=== PATIENT | female | born 1935 | race Caucasian/White ===

== ENCOUNTER 2016-10-08 21:28 | Inpatient (IN) | payer MEDICARE, OTHER ==
[~2016-10-08] VITALS: Ht 154.9 cm; Wt 78.7 kg
[~2016-10-08 21:28] MED LIST: ACYCLOVIR15 GM T; AMOXIL250 MG/5 M PO; AMOXIL500 MG PO; ASPIR-LOW81 MG PO; ATENOLOL25 MG PO; ATENOLOL50 MG PO; B COMPLETE1 EACH PO; B-COMPLEX1 CAP PO; BACTRIM DS 8001 TA1 PO; BIAXIN250 MG PO; BIAXIN500 MG PO; CALCIUM600 M2; CALCIUM600 MG PO; CIPRO250 MG PO; CIPROFLOXACIN500 MG PO; DIFLUCAN100 MG PO; FISH OIL1 IU PO; HYDROCODONE BIT1 T11 PO; LIDEX 0.05% CRE15 GM T; MASON NATURAL1200 MG; MEDROL DOSEPAK4 MG PO; MOBIC7.5 MG PO; MULTI VITAMINS1 TAB PO; MULTI-DAY VITA1 EACH PO; NEXIUM40 MG PO; PERVISION PO; PRESERVISION A1 EACH PO; PRESERVISION1 SGL PO; PROAIR HFA0.09 MG/AC INH; PROTONIX40 MG PO; PYRIDIUM100 MG PO; PYRIDIUM200 MG PO; ROBITUSSIN5 ML PO; SIMVASTATIN40 MG PO; TRAMADOL HCL50 MG PO; TYLENOL W/ CODEI5 ML PO; VISTARIL25 M2 PO; ZANTAC 300300 MG PO; ZANTAC150 MG PO; ZITHROMAX Z PA250 MG PO; ZITHROMAX250 MG PO; ZOCOR40 MG PO; ZOFRAN4 MG PO
[2016-10-08 21:40] VITALS: BP 148/93
[2016-10-08] MEDS ORDERED: NORTRIPTYLINE25 MG PO (21:44)
[2016-10-08] MEDS ORDERED: HYDROCODONE/ACE1 T12 PO (21:46)
[2016-10-08 22:23] LABS: HEMATOCRIT 43.5 % (37.0-47.0); HEMOGLOBIN 14.6 g/dl (12.0-16.0); MEAN CELL VOLUME 91.6 fl (81.0-99.0); MEAN CORPUSCULAR HGB 30.7 pg (27.0-31.0); MEAN CORPUSCULAR HGB CONC 33.6 g/dl (33.0-37.0); MEAN PLATELET VOLUME 9.9 fl (9.6-12.3); PLATELET COUNT AUTOMATED 287 10*3/uL (130-400); RED BLOOD COUNT 4.75 10*6/uL (4.10-5.10); RED CELL DISTRI WIDTH 12.6 % (0-14.5); WHITE BLOOD COUNT 10.5 10*3/uL (4.8-10.8)
[2016-10-08 22:40] LABS: ALBUMIN 3.7 gm/dl (3.1-4.5); ALKALINE PHOSPHATASE 82 U/L (45-117); BILIRUBIN, TOTAL 0.6 mg/dl (0.2-1.0); BUN 26 mg/dl (7-24); CARBON DIOXIDE 23 mmol/L (21-32); CHLORIDE 106 mmol/L (98-107); EST GLOM FILT AFRICAN AMERICAN > 60 ml/min; GLUCOSE 121 mg/dL (65-99); POTASSIUM 3.9 mmol/L (3.5-5.1); SGOT/AST 19 IU/L (3-35); SGPT/ALT 25 U/L (12-78); SODIUM 141 mmol/L (136-145); TOTAL PROTEIN 7.4 gm/dL (6.4-8.2)
[2016-10-08 22:43] LABS: TROPONIN I < 0.015 ng/ml (<0.045)
[2016-10-08 22:44] LABS: ATYPICAL LYMPHS 1 % (0-0); LYMPHOCYTE # 0.1 10*3/uL (1.3-4.4); NEUTROPHIL # 10.4 10*3/uL (2.3-7.9); NEUTROPHILS 99 % (47-73); PLATELET SUFFICIENCY NORMAL (NORMAL); TOTAL CELLS COUNTED 100 #CELLS
[2016-10-08 23:10] VITALS: BP 124/76
[2016-10-08 23:26] LABS: BILIRUBIN NEGATIVE (NEGATIVE); BLOOD NEGATIVE (NEGATIVE); CLARITY CLEAR (CLEAR); COLOR YELLOW (YELLOW); GLUCOSE NEGATIVE (NEGATIVE); KETONE 1+ (NEGATIVE); LEUKO ESTERASE NEGATIVE (NEGATIVE); NITRITE NEGATIVE (NEGATIVE); PH 5.5 (5.0-9.0); PROTEIN NEGATIVE (NEGATIVE); SPECIFIC GRAVITY 1.025 (1.005-1.030); UROBILINOGEN 0.2 E.U./dl (0.2-1.0)
[2016-10-08 23:31] LABS: URINE REFLEX COMMENT NO (NO); WBC 0-2 wbc/hpf (0-5)
[2016-10-09] VITALS (7 sets, daily range): BP systolic 127–152; BP diastolic 46–84
[2016-10-09 06:31] LABS: HEMATOCRIT 40.8 % (37.0-47.0); HEMOGLOBIN 13.2 g/dl (12.0-16.0); MEAN CELL VOLUME 93.8 fl (81.0-99.0); MEAN CORPUSCULAR HGB 30.3 pg (27.0-31.0); MEAN CORPUSCULAR HGB CONC 32.4 g/dl (33.0-37.0); MEAN PLATELET VOLUME 10.2 fl (9.6-12.3); PLATELET COUNT AUTOMATED 271 10*3/uL (130-400); RED BLOOD COUNT 4.35 10*6/uL (4.10-5.10); RED CELL DISTRI WIDTH 12.7 % (0-14.5); WHITE BLOOD COUNT 6.8 10*3/uL (4.8-10.8)
[2016-10-09 06:51] LABS: BUN 18 mg/dl (7-24); CARBON DIOXIDE 27 mmol/L (21-32); CHLORIDE 106 mmol/L (98-107); EST GLOM FILT AFRICAN AMERICAN > 60 ml/min; GLUCOSE 93 mg/dL (65-99); POTASSIUM 3.5 mmol/L (3.5-5.1); SODIUM 140 mmol/L (136-145)
[2016-10-09 06:52] LABS: CKMB 1.6 ng/ml (0.5-3.6); CPK 76 U/L (26-192)
[2016-10-09 06:53] LABS: LYMPHOCYTE # 0.2 10*3/uL (1.3-4.4); MONOCYTE # 0.4 10*3/uL (0.1-1.0); NEUTROPHIL # 6.2 10*3/uL (2.3-7.9); NEUTROPHILS 91 % (47-73); PLATELET SUFFICIENCY NORMAL (NORMAL); TOTAL CELLS COUNTED 100 #CELLS
[2016-10-09 06:59] LABS: TROPONIN I < 0.015 ng/ml (<0.045)
[2016-10-09 12:31] LABS: CKMB 1.7 ng/ml (0.5-3.6); CPK 70 U/L (26-192)
[2016-10-09 12:32] LABS: TROPONIN I < 0.015 ng/ml (<0.045)
[2016-10-09 18:13] LABS: CKMB 1.9 ng/ml (0.5-3.6); CPK 80 U/L (26-192)
[2016-10-09 18:16] LABS: TROPONIN I < 0.015 ng/ml (<0.045)
[2016-10-10] VITALS: BP 159/82
[2016-10-10 06:05] LABS: BASO % 1.2 % (0.0-1.0); EOS # 0.1 10*3/uL (0.0-0.4); HEMOGLOBIN 11.6 g/dl (12.0-16.0); LYMPH # 0.6 10*3/uL (1.3-4.4); LYMPH % 24.6 % (27.0-41.0); MEAN CELL VOLUME 94.7 fl (81.0-99.0); MEAN CORPUSCULAR HGB 30.5 pg (27.0-31.0); MEAN CORPUSCULAR HGB CONC 32.2 g/dl (33.0-37.0); MEAN PLATELET VOLUME 9.5 fl (9.6-12.3); MONO # 0.5 10*3/uL (0.1-1.0); MONO % 19.4 % (3.0-9.0); NEUT # 1.3 10*3/uL (2.3-7.9); NEUT % 50.8 % (47.0-73.0); PLATELET COUNT AUTOMATED 235 10*3/uL (130-400); WHITE BLOOD COUNT 2.5 10*3/uL (4.8-10.8)
[2016-10-10 06:44] LABS: CARBON DIOXIDE 26 mmol/L (21-32); CHLORIDE 111 mmol/L (98-107); EST GLOM FILT AFRICAN AMERICAN > 60 ml/min; GLUCOSE 84 mg/dL (65-99); POTASSIUM 3.3 mmol/L (3.5-5.1); SODIUM 143 mmol/L (136-145)
[2016-10-10 07:01] LABS: BUN 6 mg/dl (7-24)
[2016-10-10 08:00] VITALS: BP 152/69
[2016-10-10 12:00] VITALS: BP 156/66
[2016-10-10 16:00] VITALS: BP 150/70
[2016-10-10 20:00] VITALS: BP 153/88
[2016-10-11] VITALS: BP 149/60
[2016-10-11 06:08] LABS: HEMATOCRIT 36.6 % (37.0-47.0); MEAN CELL VOLUME 92.4 fl (81.0-99.0); MEAN CORPUSCULAR HGB 30.3 pg (27.0-31.0); MEAN CORPUSCULAR HGB CONC 32.8 g/dl (33.0-37.0); MEAN PLATELET VOLUME 10.1 fl (9.6-12.3); PLATELET COUNT AUTOMATED 249 10*3/uL (130-400); RED BLOOD COUNT 3.96 10*6/uL (4.10-5.10); RED CELL DISTRI WIDTH 12.8 % (0-14.5); WHITE BLOOD COUNT 3.9 10*3/uL (4.8-10.8)
[2016-10-11 06:38] LABS: ATYPICAL LYMPHS 1 % (0-0); BASOPHILS 1 % (0-1); EOSINOPHIL # 0.2 10*3/uL (0-0.4); EOSINOPHILS 4 % (1-4); LYMPHOCYTE # 1.4 10*3/uL (1.3-4.4); MONOCYTE # 0.7 10*3/uL (0.1-1.0); NEUTROPHIL # 1.6 10*3/uL (2.3-7.9); NEUTROPHILS 42 % (47-73); PLATELET SUFFICIENCY NORMAL (NORMAL); TOTAL CELLS COUNTED 100 #CELLS
[2016-10-11 08:00] VITALS: BP 138/70
[2016-10-11 12:00] VITALS: BP 127/60
== END 2016-10-11 14:10 | disposition home or self-care (01) | DRG 392 ==
LOC: ED 21:28 → 5E 10-09 → EDHOLD 10-09 → 5E 10-09 00:26
PROVIDERS: Hospitalist; Internal Medicine; Student in an Organized Health Care Education/Training Program
DX: K52.9 Noninfective gastroenteritis and colitis, unspecified (principal); E86.0 Dehydration; B02.29 Other postherpetic nervous system involvement; Z95.1 Presence of aortocoronary bypass graft; R00.0 Tachycardia, unspecified; I25.10 Atherosclerotic heart disease of native coronary artery without angina pectoris; M19.90 Unspecified osteoarthritis, unspecified site; E78.5 Hyperlipidemia, unspecified; I10 Essential (primary) hypertension; K21.9 Gastro-esophageal reflux disease without esophagitis; H35.30 Unspecified macular degeneration; E66.01 Morbid (severe) obesity due to excess calories; R91.1 Solitary pulmonary nodule; D72.819 Decreased white blood cell count, unspecified; E87.6 Hypokalemia; Z90.49 Acquired absence of other specified parts of digestive tract; Z90.710 Acquired absence of both cervix and uterus; Z80.42 Family history of malignant neoplasm of prostate; Z83.3 Family history of diabetes mellitus; Z88.8 Allergy status to other drugs, medicaments and biological substances; Z79.82 Long term (current) use of aspirin; Z79.899 Other long term (current) drug therapy; Z68.32 Body mass index [BMI] 32.0-32.9, adult

== ENCOUNTER 2017-03-18 03:53 | Emergency (ER) | payer MEDICARE, OTHER ==
[~2017-03-18] VITALS: Ht 152.4 cm; Wt 75.3 kg
[~2017-03-18 03:53] MED LIST changes: +HYDROCODONE/ACE1 T12 PO; +NORTRIPTYLINE25 MG PO
[2017-03-18 04:00] VITALS: BP 153/78
[2017-03-18] MEDS ORDERED: MEDROL DOSEPAK4 MG PO (04:12)
[2017-03-18] MEDS ORDERED: BENADRYL ALLERG25 M5 PO (04:12)
== END 2017-03-18 04:18 | disposition home or self-care (01) ==
LOC: ED 03:53
DX: R21 Rash and other nonspecific skin eruption (principal); I25.10 Atherosclerotic heart disease of native coronary artery without angina pectoris; I10 Essential (primary) hypertension; K21.9 Gastro-esophageal reflux disease without esophagitis; E78.5 Hyperlipidemia, unspecified; E66.9 Obesity, unspecified; M19.90 Unspecified osteoarthritis, unspecified site; Z90.49 Acquired absence of other specified parts of digestive tract; Z98.890 Other specified postprocedural states; Z90.710 Acquired absence of both cervix and uterus; Z95.1 Presence of aortocoronary bypass graft; Z88.8 Allergy status to other drugs, medicaments and biological substances; Z79.82 Long term (current) use of aspirin; Z79.899 Other long term (current) drug therapy

== ENCOUNTER → 2017-08-22 | Outpatient (CLI) | payer MEDICARE, OTHER ==
[~2017-08-22] MED LIST changes: +BENADRYL ALLERG25 M5 PO
== END | disposition home or self-care (01) ==
LOC: MAMMO 08-09 14:20
DX: Z12.31 Encounter for screening mammogram for malignant neoplasm of breast (principal)

== ENCOUNTER 2018-08-08 14:58 | Inpatient (IN) | payer MEDICARE, OTHER ==
[~2018-08-08] VITALS: Ht 154.9 cm; Wt 72.3 kg
--- NOTE | ~2018-08-08 | EKG ---
[place], [place] ELECTROCARDIOGRAM REPORT NAME: LONG ARCE UNIT #: [id number] ROOM: 407 DOCTOR: LOU DRAFT REPORT BIRTHDATE: [birth year] [facility] Test Date: 2018-08-08 Test Time: 15:42:12 Pat Name: LONG ARCE Department: Room: 407 Gender: F Folded Cloth Taper: Cora Arvizu : 1935 Requested By: ANJU SANDHU Order Number: [id number] Reading MD: Sebastián Flowers MD Measurements Intervals [place] Rate: 63 P: 9 RI: 171 QRS: 1 QRSD: 89 T: 23 QT: 406 QTc: 416 Interpretive Statements Sinus rhythm Left ventricular hypertrophy Electronically Signed On 08-09-2018 4:00:11 PST by Sebastián Flowers MD CM:EKGRPT:ELECTROCARDIOGRAM REPORT [id number] ANJU MCGUIRE DRAFT REPORT ANJU SANDHU DO
--- NOTE | ~2018-08-08 | PR ---
[place], [place] PROGRESS NOTE NAME: LONG ARCE UNIT #: [id number] ROOM: 407 DOCTOR: MIRIAN ARREOLA MD BIRTHDATE: [birth year] DOS: 08/11/2018 CARDIOLOGY FOLLOWUP VISIT NOTE REASON FOR VISIT: Atrial flutter and coronary artery disease and the patient was feeling better. Denies any chest pain or shortness of breath. No palpitation or dizziness. She wanted to go home. REVIEW OF SYSTEMS: Review of the 8 systems negative except as mentioned above. PHYSICAL EXAMINATION: VITAL SIGNS: Blood pressure 138/66, pulse 60, respiratory rate 20. RHYTHM STRIPS: The patient in sinus rhythm. GENERAL: Alert, comfortable, in no acute distress. HEAD AND NECK: Supple, no distended neck veins, no carotid bruit. CHEST: Symmetrical, nontender. LUNGS: Clear to auscultation bilaterally. HEART: Regular rhythm, no S3, no palpable thrills. ABDOMEN: Benign, nontender. Bowel sounds normal. EXTREMITIES: Showed no edema. Distal pulses palpable. SKIN: Warm and dry. No cyanosis, no clubbing. RECTAL: Deferred. GENITOURINARY: Deferred. MEDICATIONS AND ALLERGIES: Reviewed and labs reviewed. IMPRESSION: 1. Paroxysmal atrial flutter, the patient in sinus rhythm. 2. Coronary sinus bradycardia, currently stable. 3. Coronary artery disease, status post single-vessel bypass surgery. 4. Hypertension. 5. Mild abnormal stress test with lateral wall ____ the patient was chest pain free. 6. The patient is clinically stable with ____ no shortness of breath. Blood pressure and heart rate is stable. She wanted to go home. She can be discharged to home today on current medications. Continue Eliquis for anticoagulation. 7. Follow up with [facility] in 2-3 weeks. 8. No family at bedside at the time of my examination. [place], [place] PROGRESS NOTE NAME: LONG ARCE UNIT #: [id number] ROOM: 407 DOCTOR: MIRIAN ARREOLA MD BIRTHDATE: [birth year] MIRIAN ARREOLA MD CM:SHERIF [id number] MIRIAN ARREOLA MD 08/12/18 1657 interface
--- NOTE | ~2018-08-08 | EKG ---
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
--- NOTE | ~2018-08-08 | CON ---
[place], [place] REPORT OF CONSULTATION [facility]: [facility]CE [id number] UNIT #: [id number] ROOM: 407 DOCTOR: DAVID PATEL MD BIRTHDATE: [birth year] DOS: 08/09/2018 CARDIOLOGY CONSULTATION NOTE REASON FOR CONSULTATION: Evaluation of dyspnea and atherosclerotic heart disease. HISTORY OF PRESENT ILLNESS: The patient is an 82-year-old woman who has a remote history of coronary artery disease. She did have a single vessel bypass in 1991. She states that at that time her only symptom was dyspnea. She has not had any chest pain since then. Her most recent stress test 02/19/2015 showed normal left ventricular size and systolic function with normal myocardial perfusion and was a low-risk study. She states that she was doing reasonably well until recently when she has been feeling much more fatigued than usual. She finds that she has to stop and rest frequently. Any activity makes her tired. She denied any chest pain. While she was at the [facility] at [employer], she got very fatigued and began shaking. The therapist insisted that she come to the Emergency Room for evaluation. Currently, she just feels tired. She denies any chest pain, diaphoresis, palpitations, lightheadedness or syncope. Since she has been in the hospital, serial troponin levels have been negative. Electrolytes have been normal. Sugar was 86. PAST MEDICAL HISTORY: Includes, 1. Coronary artery disease with single vessel bypass 1991. Records not available. 2. Hypertension. 3. Hyperlipidemia. 4. Gastroesophageal reflux disease. 5. Rheumatoid arthritis. 6. Hospitalization 01/2015 with vasomotor symptoms, but no evidence for myocardial infarction. 7. Pharmacologic myocardial perfusion study 02/19/2015, normal left ventricular size, wall motion and systolic function with normal myocardial perfusion, exam was felt to be low risk. MEDICATIONS PRIOR TO ADMISSION: Aspirin 81 mg daily, atenolol 50 mg daily, Meloxicam 7.5 mg 3 times a week, multivitamin once a day, ranitidine 150 mg b.i.d., simvastatin 40 mg at bedtime, PreserVision 1 tablet daily and vitamin B complex daily. ALLERGIES: She lists an allergy to GABAPENTIN. FAMILY HISTORY: Her father of prostate cancer at age 80. Her mother at age 60 from rupture of the bowel. REVIEW OF SYSTEMS: The patient denies diplopia or loss of vision. She denies focal weakness. She denies lightheadedness or syncope, but she does feel weak. She denies nausea or vomiting. She denies fevers, chills, sweats or recent weight change. She denies orthopnea or PND. She denies palpitations, lightheadedness or syncope. She denies any chest pain. She denies hemoptysis [place], [place] REPORT OF CONSULTATION NAME: LONG ARCE UNIT #: [id number] ROOM: 407 DOCTOR: DAVID PATEL MD BIRTHDATE: [birth year] or hematemesis. She denies change in bowel or bladder habits and denies blood in her stools or urine. She denies any peripheral edema or skin rashes. She denies heat or cold intolerance and denies polyuria or polydipsia. Remainder of the review of systems is negative except as noted above. SOCIAL HISTORY: The patient does not consume alcohol or illegal drugs and does not smoke. PHYSICAL EXAMINATION: GENERAL: The patient is a well-nourished elderly white female who looks younger than her stated age. VITAL SIGNS: Pulse is 69 and regular, blood pressure is 146/75. She is afebrile. She weighs 72.3 kg and has a body mass index of 30.2. HEENT: Normocephalic and atraumatic. Extraocular muscles are intact. Sclerae are clear. Pupils equal, round and react to light. The oral mucosa is moist. Tongue is midline. NECK: Supple. She has no jugular distention. Carotids are full. There are no bruits. She has no neck or supraclavicular masses and no thyromegaly. LUNGS: Respirations are unlabored. Her chest is clear to auscultation and percussion. She has no presacral edema and no chest wall tenderness. CARDIOVASCULAR: Her heart has a regular rhythm with an S4 gallop. I heard no S3 or murmur. The PMI was not displaced. She had no precordial heave, lift or thrill. ABDOMEN: Soft and normally active without masses, organomegaly or bruits. EXTREMITIES: Showed no edema. Pedal pulses are palpable in the feet. LABORATORY DATA: I did review her echocardiogram, which showed normal left ventricular size with mild concentric left ventricular hypertrophy. Regional wall motion and systolic function were normal with stage 1 diastolic relaxation abnormality, which is normal for her age. The left atrium is mildly dilated. The aortic valve leaflets were sclerotic, but opened well. There was no significant abnormality of valve function noted. Hemoglobin is 13.2, white count 6000, platelet count 237,000. Sodium 142, potassium 4.0, chloride 110, CO2 of 26, BUN 21, creatinine 0.59. Serial troponin levels are normal. IMPRESSIONS: 1. Unexplained dyspnea. The patient shows no signs of heart failure, anemia or acute coronary ischemia; however, she tells me that she was dyspneic prior to her bypass and that was corrected by bypass surgery. 2. History of atherosclerotic heart disease, status post single vessel bypass 1991. Anatomy not currently known. 3. Essential hypertension. 4. Hyperlipidemia. 5. Pharmacologic myocardial perfusion study 02/19/2015, was a normal exam. PLAN: Thus far, there is no objective evidence to suggest heart failure as a cause for her symptoms. She does not show any signs of acute coronary syndrome. Certainly, ischemia could make her fatigued and dyspneic. We will therefore [place], [place] REPORT OF CONSULTATION NAME: LONG ARCE UNIT #: [id number] ROOM: 407 DOCTOR: DAVID PATEL MD BIRTHDATE: [birth year] continue with her workup and do a pharmacologic stress test within the next 24 hours. Further recommendations depend upon the results of the stress test. We thank Dr. Reza for asking our advice regarding her care. ADDENDUM: The patient had a pharmacologic stress test today, which showed a small area of lateral ischemia. The amount of myocardium at risk is very limited and the overall left ventricular strength is good, so the study is fairly low risk. While on the monitor later in the afternoon, she was noted to have rapid heart rhythm. Review of strips shows that her rhythm is consistent with atrial flutter. This probably accounts for her episodic symptoms. For now, we will start her on metoprolol for rate control. She has a [id number] score of 5 and therefore, should be on a direct oral anticoagulant as well. We will start Eliquis. Depending on her response to medications, we may need to consider antiarrhythmic therapy or pacer therapy in the future. I thank the hospitalist physicians for asking our advice regarding her care. DAVID PATEL MD CM:CONSTR:REPORT OF CONSULTATION 32 08/10/18 1918 interface
--- NOTE | ~2018-08-08 | EKG ---
[place], [place] ELECTROCARDIOGRAM REPORT NAME: LONG ARCE UNIT #: [id number] ROOM: 407 DOCTOR: LOU DRAFT REPORT BIRTHDATE: [birth year] [facility] [place] Test Date: 2018-08-09 Test Time: 01:18:30 Pat Name: LONG ARCE Department: Room: 407 2 Gender: F Delimer: 50 : 1935 Requested By: LAWANDA AZEVEDO Order Number: [id number] Reading MD: Sebastián Flowers MD Measurements Intervals [place] Rate: 55 P: 9 CA: 175 QRS: 13 QRSD: 85 T: 25 QT: 412 QTc: 394 Interpretive Statements Sinus rhythm Probable left atrial enlargement Electronically Signed On 08-09-2018 18:11:22 PST by Sebastián Flowers MD CM:EKGRPT:ELECTROCARDIOGRAM REPORT 0118 181 LAWANDA MCGUIRE DRAFT REPORT LAWANDA AZEVEDO DO
--- NOTE | ~2018-08-08 | PR ---
[place], [place] PROGRESS NOTE [id number] UN[facility] #: [id number] ROOM: 407 DOCTOR: DAVID PATEL MD BIRTHDATE: [birth year] DOS: 08/10/2018 CARDIOLOGY PROGRESS NOTE SUBJECTIVE: The patient was seen in the Cardiology Department today, 08/10/2018 prior to her stress test. She had a good night. Denies any further trouble with breathing. She has not had any chest pain at all. Cardiac biomarkers have all been normal. PHYSICAL EXAMINATION: VITAL SIGNS: Today, her pulse is 63 and regular, blood pressure is 130/66. She is afebrile. NECK: Supple. She has no jugular distention. Carotids are full. There are no bruits. She has no neck or supraclavicular masses, no thyromegaly. LUNGS: Respirations are unlabored. Chest is clear to auscultation and percussion. HEART: Has a regular rhythm with an S4 gallop. ABDOMEN: Benign. EXTREMITIES: Showed no edema. The etiology of her symptoms is not yet clear. We will therefore proceed with her pharmacologic stress test today to determine if she has recurrent coronary ischemia as a cause for her dyspnea. IMPRESSIONS: 1. Coronary artery disease with single vessel bypass 1992. 2. Essential hypertension. 3. Hyperlipidemia. 4. Gastroesophageal reflux disease. PLAN: We will proceed with her pharmacologic stress test with further recommendations to follow that. DAVID PATEL MD CM:PNTRANS [id number] DAVID PATEL MD 08/20/18 0907 interface
--- NOTE | ~2018-08-08 | EKG ---
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
[2018-08-08 14:59] VITALS: BP 181/56
[2018-08-08 16:14] LABS: BASO # 0.1 10*3/uL (0.0-0.1); BASO % 1.2 % (0.0-1.0); EOS # 0.3 10*3/uL (0.0-0.4); HEMOGLOBIN 14.4 g/dl (12.0-16.0); LYMPH # 1.2 10*3/uL (1.3-4.4); LYMPH % 18.8 % (27.0-41.0); MEAN CELL VOLUME 93.2 fl (81.0-99.0); MEAN CORPUSCULAR HGB 30.5 pg (27.0-31.0); MEAN CORPUSCULAR HGB CONC 32.7 g/dl (33.0-37.0); MEAN PLATELET VOLUME 10.7 fl (9.6-12.3); MONO # 0.9 10*3/uL (0.1-1.0); MONO % 13.3 % (3.0-9.0); NEUT # 4.1 10*3/uL (2.3-7.9); NEUT % 62.5 % (47.0-73.0); PLATELET COUNT AUTOMATED 261 10*3/uL (130-400); RED BLOOD COUNT 4.72 10*6/uL (4.10-5.10); RED CELL DISTRI WIDTH 13.4 % (0-14.5); WHITE BLOOD COUNT 6.5 10*3/uL (4.8-10.8)
[2018-08-08 16:26] LABS: ACT PARTIAL THROMBO TIME 22.7 SECONDS (20.8-31.5)
[2018-08-08 16:32] LABS: ALBUMIN 3.8 gm/dl (3.1-4.5); ALKALINE PHOSPHATASE 125 U/L (45-117); BUN 23 mg/dl (7-24); CHLORIDE 109 mmol/L (98-107); CREATININE 0.57 mg/dL (0.55-1.02); LIPASE 124 U/L (73-393); POTASSIUM 4.1 mmol/L (3.5-5.1); SGOT/AST 30 IU/L (3-35); SGPT/ALT 32 U/L (12-78); SODIUM 140 mmol/L (136-145); TOTAL PROTEIN 7.7 gm/dL (6.4-8.2)
[2018-08-08 16:34] LABS: TROPONIN I < 0.015 ng/ml (<0.045)
[2018-08-08 16:38] LABS: BILIRUBIN NEGATIVE (NEGATIVE); BLOOD NEGATIVE (NEGATIVE); CLARITY CLEAR (CLEAR); COLOR YELLOW (YELLOW); GLUCOSE NEGATIVE (NEGATIVE); KETONE NEGATIVE (NEGATIVE); LEUKO ESTERASE NEGATIVE (NEGATIVE); NITRITE NEGATIVE (NEGATIVE); PH 5.5 (5.0-9.0); UROBILINOGEN 0.2 E.U./dl (0.2-1.0)
[2018-08-08] MEDS ORDERED: PRESERVISION A1 EAC1 PO (17:59)
[2018-08-08 18:25] VITALS: BP 118/91
--- NOTE | 2018-08-08 18:25 | NUR ---
A 82, admitted to 4E, under the services of JOCELYN White DO with a diagnosis of DYSPNEA W EXERTION. Chief complaint is SOB W EXERTION. Patient arrived via bed from ER. Monitor applied. Initial assessment completed. Vital signs taken and recorded. JOCELYN WHITE DO notified of admission to the unit. Orders received. See assessment for past medical history, medications and allergies. Patient and/or family oriented to unit. [facility] visitation policy reviewed. Clothing/patient valuable form completed. VU PATE
[2018-08-08 18:45] VITALS: BP 148/70
--- NOTE | 2018-08-08 18:45 | NUR ---
MEDS RECONCILED AT [facility] DA[facility].
[2018-08-08 18:51] VITALS: BP 118/91
--- NOTE | 2018-08-08 18:52 | NUR ---
ADMISSION COMPLETED. PT HANDED OF F TO DEENA LANTIGUA.
[2018-08-08 20:00] VITALS: BP 161/77
--- NOTE | 2018-08-08 22:30 | NUR ---
CALLED DR ALLEN REGARDING PT C/O GERD. ORDER TO START ZANTAC FROM HOME MED LIST
[2018-08-09] VITALS: BP 122/62
[2018-08-09 07:15] LABS: BASO # 0.1 10*3/uL (0.0-0.1); BASO % 1.3 % (0.0-1.0); EOS # 0.3 10*3/uL (0.0-0.4); EOS % 4.9 % (1.0-4.0); HEMATOCRIT 40.5 % (37.0-47.0); HEMOGLOBIN 13.2 g/dl (12.0-16.0); LYMPH # 1.3 10*3/uL (1.3-4.4); LYMPH % 21.3 % (27.0-41.0); MEAN CELL VOLUME 92.9 fl (81.0-99.0); MEAN CORPUSCULAR HGB 30.3 pg (27.0-31.0); MEAN CORPUSCULAR HGB CONC 32.6 g/dl (33.0-37.0); MEAN PLATELET VOLUME 10.8 fl (9.6-12.3); MONO # 0.8 10*3/uL (0.1-1.0); MONO % 13.6 % (3.0-9.0); NEUT # 3.5 10*3/uL (2.3-7.9); NEUT % 58.6 % (47.0-73.0); PLATELET COUNT AUTOMATED 237 10*3/uL (130-400); RED BLOOD COUNT 4.36 10*6/uL (4.10-5.10); RED CELL DISTRI WIDTH 13.5 % (0-14.5)
[2018-08-09 07:33] LABS: BUN 21 mg/dl (7-24); CHLORIDE 110 mmol/L (98-107); CHOLESTEROL 99 mg/dL (<200); PHOSPHOROUS 3.9 mg/dL (2.5-4.9); SODIUM 142 mmol/L (136-145)
[2018-08-09 07:41] LABS: CREATININE 0.59 mg/dL (0.55-1.02); FREE T4 1.09 ng/dl (0.76-1.46); HDL CHOLESTEROL 40 mg/dl (40-60); LDL CHOLESTEROL 42 mg/dL (9-159); TRIGLYCERIDES 85 mg/dl (<150); VLDL CHOLESTEROL 17 mg/dL (6-40)
[2018-08-09 08:48] LABS: VITAMIN D, 25-HYDROXY 29.3 ng/mL (30-100)
--- NOTE | 2018-08-09 09:00 | NUR ---
Manager Agricultural in to talk to patient. Patient states lives at home with daughter. There are few steps in the home. Physician: corey Pharmacy: [facility] Home health services: none Patient's level of ADLs: MINIMAL ASSIST Patient has working utilities: all working DME: cane Follow-up physician's appointment after d/c: will be made by hospitalist nurse director upon discharge Does patient want to access PORTAL?: no Discharge plan discussed with patient, patient lives at home with daughter, she states she is independent in adls and ambulation, patient states she will be going home when able. discussed with her VNA services at home and patient stated she didn't think she would need anything, then stated she would think about having their services. case management will follow. BAKARI BELL
--- NOTE | 2018-08-09 10:47 | NUR ---
CALLED THE [facility] REGARDING NEW PT CONSULT FOR DR PATEL. 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
--- NOTE | 2018-08-09 10:48 | NUR ---
SPOKE TO DR SANDERSON AND REQUESTED PTS HOME MEDIACTIONS BE CONTINUED. SHE SAID SHE WILL TAKE CARE OF IT
[2018-08-09 12:00] VITALS: BP 153/65
--- NOTE | 2018-08-09 15:09 | NUR ---
Occupational Therapy evaluation completed on 4 with full eval to follow. Precuations include cane use, dyspnea upon exertion. Patient is low complexity level 70146 via chart review, testing and evaluation. Recommend OT per pOC and return home alone upon d/c. Thank you for this referral Briseyda Sheltno OTR/L
--- NOTE | 2018-08-09 15:51 | NUR ---
PHYSICAL THERAPY PAtient evaluated on 4, full evaluation to follow. Continue with PT as per plan of care with fall, cardiac and acute debility precautions. Home for d/c planning with out patient PT at [facility] PT as prior. Patient is moderate complexity via chart review, tests and evaluation; [id number]. Thank you for this referral. Radha Villagomez,PT
[2018-08-09 16:00] VITALS: BP 146/75
[2018-08-09 20:00] VITALS: BP 168/77
--- NOTE | 2018-08-09 20:46 | NUR ---
PT MEDICATED WITH PO TYLENOL PER PRN ORDER FOR C/O HEADACHE. WILL MONITOR EFFECTIVENESS. CALL LIGHT LEFT IN REACH.
[2018-08-10] VITALS: BP 118/62
[2018-08-10 06:11] LABS: BASO # 0.1 10*3/uL (0.0-0.1); BASO % 1.8 % (0.0-1.0); EOS # 0.3 10*3/uL (0.0-0.4); HEMATOCRIT 41.5 % (37.0-47.0); HEMOGLOBIN 13.4 g/dl (12.0-16.0); LYMPH # 1.2 10*3/uL (1.3-4.4); LYMPH % 25.1 % (27.0-41.0); MEAN CELL VOLUME 93.5 fl (81.0-99.0); MEAN CORPUSCULAR HGB 30.2 pg (27.0-31.0); MEAN CORPUSCULAR HGB CONC 32.3 g/dl (33.0-37.0); MEAN PLATELET VOLUME 10.5 fl (9.6-12.3); MONO # 0.7 10*3/uL (0.1-1.0); NEUT # 2.5 10*3/uL (2.3-7.9); NEUT % 51.9 % (47.0-73.0); PLATELET COUNT AUTOMATED 256 10*3/uL (130-400); RED BLOOD COUNT 4.44 10*6/uL (4.10-5.10); RED CELL DISTRI WIDTH 13.5 % (0-14.5); WHITE BLOOD COUNT 4.9 10*3/uL (4.8-10.8)
[2018-08-10 06:25] LABS: BUN 20 mg/dl (7-24); CHLORIDE 108 mmol/L (98-107); POTASSIUM 4.3 mmol/L (3.5-5.1); SODIUM 142 mmol/L (136-145)
[2018-08-10 08:03] VITALS: BP 130/66
--- NOTE | 2018-08-10 08:16 | NUR ---
PATIENT PLEASANT AND COOPERATIVE THIS MORNING. BED CHANGED AND PATIENT BATHED TODAY. NO COMPLAINTS AT THIS TIME. MARINO IVORY [facility]
--- NOTE | 2018-08-10 09:00 | NUR ---
case management visits with patient, patient states she will be going home when able. patient declines any home services at this time
--- NOTE | 2018-08-10 09:21 | NUR ---
PHYSICAL THERAPY Patient presented to therapy in sitting position with a relative visiting in room and no complaints. Patient agrees to therapy session. Patient was identified by name and . Patient performed STS transfer from low chair with SBA. Patient ambulated with straight cane for 150' x 1 with CGA X 1 to Close Supervision with verbal cues for upright posture. Patient rested in chair and then STS transfer again with SBA. Patient ambulated 80' x 1 with CLOSE SUPERVISION to [facility] ,where she ascended and descended x 10 steps with Close Supervision. Patient then ambulated back to room 80' x 1 with CLOSE SUPERVISION with straight cane. Patient was left in sitting in chair with vistor present and call light within reach. Patient is ambulating to and from restroom throughout the day by herself. Patient was 1:1 with this PROFESSIONAL APPLICATION DESIGNER for 23 minutes total. LEILA MENDEZ PROFESSIONAL APPLICATION DESIGNER
--- NOTE | 2018-08-10 09:30 | NUR ---
PATIENT NPO, MEDS HELD UNTIL PROCEDURE IS COMPLETED. MARINO IVORY [facility]
--- NOTE | 2018-08-10 10:15 | NUR ---
PATIENT TAKEN OFF FLOOR FOR STRESS TEST. MARINO IVORY SPNR[facility]
--- NOTE | 2018-08-10 11:45 | NUR ---
INFORMED SIGNED CONSENT OBTAINED FOR LEXISCAN STRESS TEST WITH DR PATEL. RESTING EKG SINUS BRADYCARDIA HR 58 WITH PVC'S. PULSE OX 97% LUNGS CLEAR. PT COMPLETED ONE MINUTE OF A LEXISCAN PROTOCOL WITH PT RECEIVING LEXISCAN 0.4MG IV OVER 10 SECONDS. FREQUENT PVC'S NOTED WITH TRIGEMNY. NO ST CHANGES SEEN. PT C/O HEADACHE WITH INJECTION. LAST RECOVERY HR OF 111 BP 110/64. PT IN STABLE CONDITION, AWAITING NUCLEAR IMAGES.
--- NOTE | 2018-08-10 13:38 | NUR ---
PATIENT'S HEARTRATE IN THE 140S. PATIENT SITTING, ASYMPTOMATIC, DR PATEL NOTIFIED.
[2018-08-10 16:00] VITALS: BP 134/58
[2018-08-10 20:00] VITALS: BP 129/68
--- NOTE | 2018-08-10 22:14 | NUR ---
PATIENT AWAKE RESTING IN BED. VOICES NO COMPLAINTS AT THIS TIME. CALL LIGHT WITH REACH. WILL CONTINUE TO MONITOR.
[2018-08-11] VITALS: BP 123/74
[2018-08-11 08:00] VITALS: BP 138/66
--- NOTE | 2018-08-11 08:40 | NUR ---
24 HR CHART CHECK COMPLETE
[2018-08-11 12:00] VITALS: BP 154/90
--- NOTE | 2018-08-11 13:45 | NUR ---
DR GIL IN TO SEE PT. HE STATED SHE CAN BE DISCHARGED AND REQUESTED WE GIVE HER A COUPON FOR 30 [address] SU[address]PLY OF [address] TORRES INFORMED
[2018-08-11] MEDS ORDERED: VITAMIN D5000 UNI1 PO (15:37)
[2018-08-11] MEDS ORDERED: XARE20MG PO (15:37)
[2018-08-11] MEDS ORDERED: FAMOTIDINE20 M1 PO (15:37)
[2018-08-11] MEDS ORDERED: METOPROLOL SUCC25 M2 PO (15:37)
[2018-08-11 16:00] VITALS: BP 152/63
--- NOTE | 2018-08-11 17:07 | NUR ---
Discharge instructions reviewed with patient/family. Patient receptive and verbalizes understanding. Follow-up care arranged. Written instructions given to patient/family. 4 PRINTED SCRIPTS GIVEN TO PT. GRZEGORZ SINGER
--- NOTE | 2018-08-13 07:41 | NUR ---
PHYSICAL THERAPY CO-SIGN I approve of the Phyical Therapy notes written above. SINCERE EDGE PT
== END 2018-08-11 17:12 | disposition home or self-care (01) | DRG 204 ==
LOC: ED 14:58 → EDHOLD 17:36 → 4E 17:36
PROVIDERS: Emergency Medicine; Internal Medicine; ADMIT Internal Medicine
PROC: 3E073KZ Introduction of Other Diagnostic Substance into Coronary Artery, Percutaneous Approach (ICD-10-PCS; principal; 2018-08-10)
PROC: 4A02XM4 Measurement of Cardiac Total Activity, External Approach (ICD-10-PCS; principal; 2018-08-10)
DX: R06.09 Other forms of dyspnea (principal); I48.92 Unspecified atrial flutter; I25.118 Atherosclerotic heart disease of native coronary artery with other forms of angina pectoris; R53.83 Other fatigue; I16.0 Hypertensive urgency; H35.30 Unspecified macular degeneration; M19.90 Unspecified osteoarthritis, unspecified site; E66.9 Obesity, unspecified; I25.9 Chronic ischemic heart disease, unspecified; R00.1 Bradycardia, unspecified; E78.5 Hyperlipidemia, unspecified; I10 Essential (primary) hypertension; K21.9 Gastro-esophageal reflux disease without esophagitis; Z88.8 Allergy status to other drugs, medicaments and biological substances; Z90.49 Acquired absence of other specified parts of digestive tract; Z95.1 Presence of aortocoronary bypass graft; Z90.710 Acquired absence of both cervix and uterus; Z80.42 Family history of malignant neoplasm of prostate; Z83.3 Family history of diabetes mellitus; Z79.82 Long term (current) use of aspirin; Z79.899 Other long term (current) drug therapy; Z68.30 Body mass index [BMI] 30.0-30.9, adult

== ENCOUNTER 2018-08-16 10:16 | Emergency (ER) | payer MEDICARE, OTHER ==
[~2018-08-16] VITALS: Ht 152.4 cm; Wt 72.1 kg
[~2018-08-16 10:16] MED LIST changes: +FAMOTIDINE20 M1 PO; +METOPROLOL SUCC25 M2 PO; +PRESERVISION A1 EAC1 PO; +VITAMIN D5000 UNI1 PO; +XARE20MG PO
[2018-08-16 10:24] VITALS: BP 164/78
== END 2018-08-16 11:06 | disposition home or self-care (01) ==
LOC: ED 10:16
DX: I10 Essential (primary) hypertension (principal); I25.10 Atherosclerotic heart disease of native coronary artery without angina pectoris; E78.5 Hyperlipidemia, unspecified; M19.90 Unspecified osteoarthritis, unspecified site; E66.9 Obesity, unspecified; K21.9 Gastro-esophageal reflux disease without esophagitis; Z79.899 Other long term (current) drug therapy; Z79.82 Long term (current) use of aspirin; Z88.8 Allergy status to other drugs, medicaments and biological substances

== ENCOUNTER 2019-03-20 12:58 | Inpatient (IN) | payer MEDICARE, OTHER ==
[~2019-03-20] VITALS: Ht 154.9 cm; Wt 70.8 kg
[2019-03-20] VITALS (7 sets, daily range): BP systolic 157–191; BP diastolic 55–92
--- NOTE | ~2019-03-20 | EKG ---
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
--- NOTE | ~2019-03-20 | CON ---
[place], [place] REPORT OF CONSULTATION NAME: LONG ARCE UNIT #: [id number] ROOM: 504 DOCTOR: ELVA PINA MD BIRTHDATE: [birth year] DOS: 03/22/2019 GASTROENDOSCOPIC CONSULTATION REPORT HISTORY OF PRESENT ILLNESS: An 83-year-old patient who has presented with chief complaint of epigastric pain associated with melanotic stool. The patient has been on Xarelto. Xarelto has been put on hold. Her H and H were 13 and 41 at the time of admission. Her INR was 1.0. Lactic acid was normal. She was continued been observed. Her H and H continued to be sustained at acceptable level, no drop was noticed. PAST MEDICAL HISTORY: GERD, hypertension, coronary artery disease, obesity, osteoarthritis, and hyperlipidemia. PAST SURGICAL HISTORY: Cholecystectomy, appendectomy, hysterectomy, coronary artery bypass, and adenoidectomy. SOCIAL HISTORY: Nonsmoker, nonalcohol consumer. FAMILY HISTORY: Noncontributory. ALLERGIES: GABAPENTIN. MEDICATIONS: At home reviewed including famotidine, aspirin. REVIEW OF SYSTEMS: HEENT: Denies double vision, blurred vision. RESPIRATORY: Denies shortness of breath. CARDIOVASCULAR: Denies chest pain. DIGESTIVE SYSTEM: As above. GASTROINTESTINAL: GI bleed. PHYSICAL EXAMINATION: VITAL SIGNS: Stable. HEENT: Within normal limits. NECK: Supple, no thyromegaly, no cervical lymphadenopathy. CHEST: Symmetric anatomy, equal expansion. No wheeze, no rhonchi. HEART: Atrial fibrillation, moderate ventricular response. ABDOMEN: Soft. No hepato-organomegaly. Bowel sounds present. EXTREMITIES: No cyanosis, no pedal edema. NEUROLOGIC: Alert, oriented to time, place, person. LABORATORY DATA: Reviewed. Records reviewed. Data reviewed. IMPRESSION AND PLAN: Gastrointestinal bleed. The patient has been on combination of aspirin and Xarelto and both have been kept on hold. The patient has been observed in ICU. There was no activity drop in H and H, therefore, we are going to consider endoscopic evaluation of upper GI tract and clinical reevaluate. [place], [place] REPORT OF CONSULTATION NAME: LONG ARCE UNIT #: [id number] ROOM: 504 DOCTOR: YOVANI ROSSELVA BIRTHDATE: [birth year] Thank you again for your kind referral again. ELVA PINA MD CM:CONSTR:REPORT OF CONSULTATION 1400 03/23/19 0124 interface
--- NOTE | ~2019-03-20 | O ---
[place], [place] OPERATIVE NOTE NAME: LONG ARCE UNIT #: [id number] ROOM: 504 DOCTOR: ELVA PINA MD BIRTHDATE: [birth year] DOS: 03/22/2019 GASTROENDOSCOPIC REPORT INDICATION: An 83-year-old who has presented with GI bleed, has been observed. The patient has been on Xarelto and aspirin that has been placed on hold. The patient has had blood work as well as CT scan of the abdomen. No definitive acute drop and concerns were noticed except fatty liver. PROCEDURE: Today's procedure part of investigation is panendoscopy. PREMEDICATION: Propofol. SCOPE: Olympus forward-viewing gastroscope Q10 video. REPORT: advanced through the length of esophagus without difficulty. Gastric pouch was entered, hiatal hernia was noticed, which is a small. Gastric pouch was then entered. Atrophic gastritis seen. Antral biopsy obtained. Duodenal bulb was entered. Multiple small duodenal ulcerations seen, photographed. Antral biopsy obtained. GI reflexion of the scope reveals cardia to be benign. Air was suctioned out. The patient was extubated, tolerated the procedure well. IMPRESSION: Multiple duodenal small ulcerations, atrophic gastritis, and small hiatal hernia. PLAN: Protonix 40 mg day. We are going to start feeding her soft diet today with holding aspirin product until Monday and anticoagulants until Monday and clinical reassessment. ELVA PINA MD CM:OPRECORD:OPERATIVE NOTE 1400 013 ELVA PINA MD 03/23/19 013 interface
[2019-03-20 14:00] LABS: BASO # 0.1 10*3/uL (0.0-0.1); BASO % 1.4 % (0.0-1.0); EOS # 0.2 10*3/uL (0.0-0.4); EOS % 3.6 % (1.0-4.0); HEMATOCRIT 41.9 % (37.0-47.0); HEMOGLOBIN 13.5 g/dl (12.0-16.0); LYMPH # 1.2 10*3/uL (1.3-4.4); LYMPH % 21.4 % (27.0-41.0); MEAN CELL VOLUME 95.2 fl (81.0-99.0); MEAN CORPUSCULAR HGB 30.7 pg (27.0-31.0); MEAN CORPUSCULAR HGB CONC 32.2 g/dl (33.0-37.0); MEAN PLATELET VOLUME 10.2 fl (9.6-12.3); MONO # 0.7 10*3/uL (0.1-1.0); MONO % 12.1 % (3.0-9.0); NEUT # 3.4 10*3/uL (2.3-7.9); NEUT % 61.1 % (47.0-73.0); PLATELET COUNT AUTOMATED 266 10*3/uL (130-400); RED CELL DISTRI WIDTH 13.2 % (0-14.5); WHITE BLOOD COUNT 5.6 10*3/uL (4.8-10.8)
[2019-03-20 14:12] LABS: ACT PARTIAL THROMBO TIME 27.4 SECONDS (20.0-32.1)
[2019-03-20 14:16] LABS: ALBUMIN 3.6 gm/dl (3.1-4.5); ALKALINE PHOSPHATASE 116 U/L (45-117); BUN 15 mg/dl (7-24); CHLORIDE 107 mmol/L (98-107); CREATININE 0.52 mg/dL (0.55-1.02); LIPASE 107 U/L (73-393); POTASSIUM 4.2 mmol/L (3.5-5.1); SGOT/AST 24 IU/L (3-35); SGPT/ALT 30 U/L (12-78); SODIUM 139 mmol/L (136-145); TOTAL PROTEIN 7.1 gm/dL (6.4-8.2)
[2019-03-20 14:18] LABS: TROPONIN I < 0.015 ng/ml (<0.045)
[2019-03-20 14:29] LABS: BILIRUBIN NEGATIVE (NEGATIVE); BLOOD NEGATIVE (NEGATIVE); CLARITY CLEAR (CLEAR); COLOR YELLOW (YELLOW); GLUCOSE NEGATIVE (NEGATIVE); KETONE NEGATIVE (NEGATIVE); LEUKO ESTERASE NEGATIVE (NEGATIVE); NITRITE NEGATIVE (NEGATIVE); UROBILINOGEN 0.2 E.U./dl (0.2-1.0)
[2019-03-20 14:37] LABS: BACTERIA TRACE
[2019-03-20] MEDS ORDERED: LIPITOR40 MG PO (16:17)
[2019-03-20] MEDS ORDERED: METOPROLOL SUCC25 M2 PO (16:20)
--- NOTE | 2019-03-20 17:18 | NUR ---
DR FORD NOTIFIED OF PT'S ELEVATED BP OF 191/77. ORDER TO START PT'S TOPROL XL NOW.
[2019-03-21] VITALS (7 sets, daily range): BP systolic 120–163; BP diastolic 49–82
[2019-03-21 05:13] LABS: BASO # 0.1 10*3/uL (0.0-0.1); BASO % 1.6 % (0.0-1.0); EOS # 0.3 10*3/uL (0.0-0.4); EOS % 5.3 % (1.0-4.0); HEMATOCRIT 39.7 % (37.0-47.0); HEMOGLOBIN 13.2 g/dl (12.0-16.0); LYMPH # 1.4 10*3/uL (1.3-4.4); LYMPH % 27.8 % (27.0-41.0); MEAN CELL VOLUME 94.7 fl (81.0-99.0); MEAN CORPUSCULAR HGB 31.5 pg (27.0-31.0); MEAN CORPUSCULAR HGB CONC 33.2 g/dl (33.0-37.0); MEAN PLATELET VOLUME 10.5 fl (9.6-12.3); MONO # 0.7 10*3/uL (0.1-1.0); MONO % 14.2 % (3.0-9.0); NEUT # 2.5 10*3/uL (2.3-7.9); NEUT % 50.9 % (47.0-73.0); PLATELET COUNT AUTOMATED 246 10*3/uL (130-400); RED BLOOD COUNT 4.19 10*6/uL (4.10-5.10); RED CELL DISTRI WIDTH 13.2 % (0-14.5); WHITE BLOOD COUNT 4.9 10*3/uL (4.8-10.8)
[2019-03-21 05:42] LABS: ALBUMIN 3.3 gm/dl (3.1-4.5); ALKALINE PHOSPHATASE 99 U/L (45-117); BUN 10 mg/dl (7-24); CHLORIDE 105 mmol/L (98-107); CHOLESTEROL 96 mg/dL (<200); CREATININE 0.58 mg/dL (0.55-1.02); HDL CHOLESTEROL 42 mg/dl (40-60); PHOSPHOROUS 3.4 mg/dL (2.5-4.9); POTASSIUM 3.9 mmol/L (3.5-5.1); SGOT/AST 27 IU/L (3-35); SGPT/ALT 33 U/L (12-78); SODIUM 140 mmol/L (136-145); TOTAL PROTEIN 6.5 gm/dL (6.4-8.2)
[2019-03-21 05:48] LABS: LDL CHOLESTEROL 31 mg/dL (9-159); TRIGLYCERIDES 116 mg/dl (<150); VLDL CHOLESTEROL 23 mg/dL (6-40)
[2019-03-21 05:51] LABS: ACT PARTIAL THROMBO TIME 25.5 SECONDS (20.0-32.1)
[2019-03-21 07:29] LABS: VITAMIN D, 25-HYDROXY 43.5 ng/mL (30-100)
--- NOTE | 2019-03-21 08:55 | NUR ---
DR CONTEH TO SEE PT,PT ONLY STATING OF ONE EPISODE OF PIKE PAIN LAST NIGHT, THEN SHE PASSED GAS AND THE PAIN WENT AWAY, PT PLEASANT, TALKATIVE TAKING CL LIQUIDS EASILY
--- NOTE | 2019-03-21 11:00 | NUR ---
Revolving Inventory Clerk in to talk to patient. Patient states lives at home with her daughter who lives in her basement. There are 15 steps in the home. Physician: Dr. Braeden Reza Pharm[facility]: [facility] Home health services: none Patient's level of ADLs: MINIMAL ASSIST Patient has working utilities: yes DME: [employer], cane Follow-up physician's appointment after d/c: will be made by the hospitalist nurse director upon discharge Does patient want to access PORTAL?: no Discharge plan discussed with patient. She lives at home with her daughter living in her basement. She is independent in her ADLs and ambulates with a cane. Discussed home health care services and she denies any home needs at this time. When medically stable she will be discharged to home. Her friend will transport on discharge. SAIDA WASHINGTON
--- NOTE | 2019-03-21 11:08 | NUR ---
PHYSICAL THERAPY Physical therapy evaluation complete, [facility]. Full evaluation/details to follow. Moderate complexity PT evaluation (10849) per chart review and evaluation. PT to progress transfers, gait, and balance per POC. Recommend home with home health PT services at discharge. Thank you. Crista Naik,PT,DPT
--- NOTE | 2019-03-21 11:15 | NUR ---
Occupational Therapy evaluation completed in ICCU with full eval to follow. Precautions include fall risk; unsteady in standing, ICCU, IV UE, low complexity level 82049 via chart review,testing and evaluation. Recommend OT for increasing activity tolerance and safety in ADLs and energy conservation/work simplification education per pOC and home alone w/ home health SN,OT PT as indicated upon d/c. Thank you. Briseyda Shelton OTR/l
--- NOTE | 2019-03-21 17:39 | NUR ---
TRANSFERRED TO [facility]
--- NOTE | 2019-03-21 17:45 | NUR ---
INITIAL ASSESSMENT COMPLETE. PT ORIENTED TO ROOM. RESP EASY ON RA.BP 130/82. PT VOICES NO NEEDS CALL LIGHT IN REACH.
--- NOTE | 2019-03-21 18:26 | NUR ---
Patient resting quietly with no c/o discomfort. Respirations easy and regular. Vital signs stable. No overt distress. VU PATE
--- NOTE | 2019-03-21 19:10 | NUR ---
ARRIVED ON SHIFT, INTRODUCED TO PATIENT, BEDSIDE REPORT RECEIVED, WHITE BOARD UPDATED, CALL LIGHT USE ENCOURAGED. NO QUESTIONS OR CONCERNS VOICED AT THIS TIME.
--- NOTE | 2019-03-21 22:18 | NUR ---
24 HR chart check completed.
[2019-03-22] VITALS (8 sets, daily range): BP systolic 126–165; BP diastolic 47–78
--- NOTE | 2019-03-22 05:35 | NUR ---
Patient sleeping. Respirations relaxed and easy. Siderails up 2. [place] on.BED ALARM ON. CIERA URENA
[2019-03-22 06:34] LABS: BASO # 0.1 10*3/uL (0.0-0.1); BASO % 1.3 % (0.0-1.0); EOS # 0.2 10*3/uL (0.0-0.4); EOS % 4.5 % (1.0-4.0); HEMATOCRIT 43.9 % (37.0-47.0); HEMOGLOBIN 14.3 g/dl (12.0-16.0); LYMPH # 1.2 10*3/uL (1.3-4.4); LYMPH % 22.9 % (27.0-41.0); MEAN CELL VOLUME 95.2 fl (81.0-99.0); MEAN CORPUSCULAR HGB CONC 32.6 g/dl (33.0-37.0); MEAN PLATELET VOLUME 10.4 fl (9.6-12.3); MONO # 0.7 10*3/uL (0.1-1.0); MONO % 13.3 % (3.0-9.0); NEUT # 3.1 10*3/uL (2.3-7.9); NEUT % 57.8 % (47.0-73.0); PLATELET COUNT AUTOMATED 292 10*3/uL (130-400); RED BLOOD COUNT 4.61 10*6/uL (4.10-5.10); RED CELL DISTRI WIDTH 13.2 % (0-14.5); WHITE BLOOD COUNT 5.3 10*3/uL (4.8-10.8)
[2019-03-22 06:59] LABS: BUN 9 mg/dl (7-24); CHLORIDE 106 mmol/L (98-107); CREATININE 0.59 mg/dL (0.55-1.02); SODIUM 139 mmol/L (136-145)
--- NOTE | 2019-03-22 09:27 | NUR ---
SPOKE WITH DR ARREOLA REGARDING PT BP. PT 102/74,HR 111. PER DR ARREOLA PT TO HAVE 12.5 METOPROLOL PER HIS ORDER.
--- NOTE | 2019-03-22 09:49 | NUR ---
Patient resting quietly with no c/o discomfort. Respirations easy and regular. Vital signs stable. No overt distress. Family at bedside. HISSOM,MONIKA
--- NOTE | 2019-03-22 11:00 | NUR ---
Fern Picker in to see patient. No new needs or request at this time. She denies any home needs. When medically stable she will be discharged to home. Per multidisciplinary discharge planning meeting there is a possibility of discharge today.
--- NOTE | 2019-03-22 11:23 | NUR ---
SPINNER BOX DISCONTINUED PER ORDER. PATIENT RESTING IN CHAIR WATCHING TV. VOICES NO NEEDS/CONCERNS AT THIS TIME. RESPIRATIONS EASY. CALL LIGHT WITHIN REACH.
--- NOTE | 2019-03-22 11:30 | NUR ---
CONTACTED DR PINA PER DR AKHTAR'S REQUEST FOR UPDATE FOR PT PLAN OF CARE.HE DID NOT ANSWER. WILL REATTEMPT AT LATER TIME.
--- NOTE | 2019-03-22 11:47 | NUR ---
SPOKE TO DR BURTON REGARDING PLAN OF CARE,ORDERS RECIEVED.NOTIFIED OR PT WILL BE FOR EGD TODAY.
--- NOTE | 2019-03-22 13:10 | NUR ---
PT OFF FLOOR VIA BED TO OD FOR EGD WITH DR PINA.
--- NOTE | 2019-03-22 13:46 | NUR ---
PHYSICAL THERAPY CO-SIGN I approve of the Physical Therapy notes written above. SAIDA PEREZ PT,DPT
--- NOTE | 2019-03-22 14:45 | NUR ---
PATIENT RETURNED FROM [facility] VIA CART. RESTING IN BED, CALL LIGHT WITHIN REACH, VOICES NO CONCERNS AT THIS TIME. FAMILY AT BEDSIDE.
--- NOTE | 2019-03-22 17:57 | NUR ---
Patient resting quietly with no c/o discomfort. Respirations easy and regular. Vital signs stable. No overt distress. Call light within reach. HISSOM,MONIKA
--- NOTE | 2019-03-22 18:34 | NUR ---
NOTIFIED DR AKHTAR THAT,PER DR PINA,XARELTO AND ASA SHOULD NOT BE RESTARTED UNTIOL MONDAY AT EARLIEST.
--- NOTE | 2019-03-22 20:35 | NUR ---
PT IS AWAKE AND SITTING UP IN THE CHAIR AT THIS TIME. SHE STATES THAT SHE IS FEELING WELL AND HAS NO OVERT S/S OF DISTRESS. PT STATES THAT SHE FEELS READY TO GO HOME AND IS HOPEFUL TO BE DISCHARED IN THE AM. LAST BM WAS THIS MORNING AND PT STATES THAT SHE DID NOT NOTICE ANY BRIGHT RED BLOOD SHE DID IN PREVIOUS BM'S. CALL LIGHT IS WITHIN REACH, WILL CONTINUE TO MONITOR.
[2019-03-23] VITALS: BP 141/61
[2019-03-23 08:00] VITALS: BP 143/59
[2019-03-23 12:00] VITALS: BP 137/57
[2019-03-23 16:00] VITALS: BP 103/55
[2019-03-23 20:00] VITALS: BP 136/44
[2019-03-24] VITALS: BP 123/54
--- NOTE | 2019-03-24 00:40 | NUR ---
PT ASLEEP AT THIS TIME. NO S/S OF DISTRESS NOTED. BED IS LOW, CALL LIGHT WITHIN REACH. WILL CONTINUE TO MONITOR.
[2019-03-24 08:00] VITALS: BP 138/58
[2019-03-24 12:00] VITALS: BP 151/56
[2019-03-24 16:00] VITALS: BP 143/63
--- NOTE | 2019-03-24 18:58 | NUR ---
24 HR CHART CHECK COMPLETE.
--- NOTE | 2019-03-24 19:10 | NUR ---
PT IS SITTING UP IN THE CHAIR AT THIS TIME. NO S/S OF DISTRESS NOTED. SHE STATES THAT SHE IS FEELING FINE AND TOLERATED HER DIET WELL WITH NO GASTRIC UPSET. CALL LIGHT IS WITHIN REACH, WILL CONTINUE TO MONITOR.
[2019-03-24 20:00] VITALS: BP 155/75
[2019-03-25] VITALS: BP 141/58
[2019-03-25 06:04] LABS: BASO # 0.1 10*3/uL (0.0-0.1); BASO % 1.3 % (0.0-1.0); EOS # 0.3 10*3/uL (0.0-0.4); EOS % 5.4 % (1.0-4.0); HEMATOCRIT 38.7 % (37.0-47.0); HEMOGLOBIN 12.2 g/dl (12.0-16.0); LYMPH # 1.3 10*3/uL (1.3-4.4); LYMPH % 21.1 % (27.0-41.0); MEAN CELL VOLUME 95.8 fl (81.0-99.0); MEAN CORPUSCULAR HGB 30.2 pg (27.0-31.0); MEAN CORPUSCULAR HGB CONC 31.5 g/dl (33.0-37.0); MEAN PLATELET VOLUME 10.5 fl (9.6-12.3); MONO # 0.9 10*3/uL (0.1-1.0); MONO % 15.2 % (3.0-9.0); NEUT # 3.4 10*3/uL (2.3-7.9); NEUT % 56.7 % (47.0-73.0); PLATELET COUNT AUTOMATED 241 10*3/uL (130-400); RED BLOOD COUNT 4.04 10*6/uL (4.10-5.10); RED CELL DISTRI WIDTH 13.1 % (0-14.5); WHITE BLOOD COUNT 5.9 10*3/uL (4.8-10.8)
[2019-03-25 06:22] LABS: ALBUMIN 3.2 gm/dl (3.1-4.5); ALKALINE PHOSPHATASE 115 U/L (45-117); BUN 24 mg/dl (7-24); CHLORIDE 106 mmol/L (98-107); CREATININE 0.62 mg/dL (0.55-1.02); POTASSIUM 4.4 mmol/L (3.5-5.1); SGOT/AST 18 IU/L (3-35); SGPT/ALT 24 U/L (12-78); SODIUM 142 mmol/L (136-145); TOTAL PROTEIN 6.4 gm/dL (6.4-8.2)
--- NOTE | 2019-03-25 07:45 | NUR ---
PHYSICAL THERAPY Patient seen this am 1;1 for therapy visit and was sitting up on EOB upon therapist arrival. Patient identified by name / and reports no new c/o's at this time. Patient transfers sit to stand SBA and ambulates 75'x [address] cane, CGA, demonstrating several bouts of unsteady gait pattern. Patient needed v/c to improve safe step sequence and instructed on safe stair navigation. Patient able to navigate up/down 5 steps, CGA, use of st cane and no handrail support, demonstrating single step gael. Patient stated she felt comfortable on steps and returned to EOB sit with call light, tray table, telephone and body alarm for safety as breakfast arrived. Will continue per POC as tolerated, total treatment time 17 minutes. Efraín Beltrán, CHALK MOLDING MACHINE OPERATOR
--- NOTE | 2019-03-25 07:47 | NUR ---
PT RESTING IN BED. NO DISTRESS NOTED SEE SHIFT ASSESSMENT WILL MONITOR
[2019-03-25 08:00] VITALS: BP 149/68
--- NOTE | 2019-03-25 08:00 | NUR ---
OT NOTE Pt was seen this A.M. 1:1 for 28 minute OT session. Upon arrival pt was supine in bed. Pt identified by name and and had no complaints at this time. Pt transferred supine to sit EOB with SBA. While sitting EOB pt donned B socks with supervision. Sit to stand completed from bed level with SBA followed by functional mobility into the bathroom with SBA and use of straight cane for UE support. There she transferred on/off standard commode with SBA, clothing management completed with SBA, and and toilet hygiene completed MN while seated. Pt then stood sink side while washing her hands, face, completing hair care, and oral care with SBA. Functional mobility completed back to the EOB with verbal prompts for keeping her head up and slowing down due to bouts of impulsive speed. Challenged pt's static standing tolerance needed for increased I in self care tasks and functional transfers, pt was able to tolerate aprox 8 minutes before sitting due to fatigue. Pt was left sitting upright on the EOB with call light in hand, tray table in place, and body alarm on for safety. Continue with rec D/C plan to home with home health. DAKSHA Thomas/Kd
--- NOTE | 2019-03-25 11:00 | NUR ---
Grain Elevator Clerk in to see patient. She is sitting up in her bedside chair without distress noted. No new needs or request at this time. She denies any home needs. When medically stable she will be discharged to home.
[2019-03-25 12:00] VITALS: BP 156/59
--- NOTE | 2019-03-25 15:32 | NUR ---
SPOKE W/DR. PINA RE D/C. OK TO D/C TODAY.
[2019-03-25] MEDS ORDERED: PANTOPRAZOLE SO40 MG PO (15:44)
--- NOTE | 2019-03-25 16:55 | NUR ---
Discharge instructions reviewed with patient/family. Patient receptive and verbalizes understanding. Follow-up care arranged. Written instructions given to patient/family. CODY BARROS
--- NOTE | 2019-03-27 07:48 | NUR ---
PHYSICAL THERAPY CO-SIGN I approve of the Physical Therapy notes written above. SAIDA PEREZ PT,DPT
== END 2019-03-25 16:56 | disposition home or self-care (01) | DRG 378 ==
LOC: ED 12:58 → ICCU 15:39 → 5E 15:39 → EDHOLD 15:39 → ICCU 16:02 → 5E 03-21 17:02
PROVIDERS: Emergency Medicine; Family Medicine; Hospitalist; ADMIT Family Medicine
PROC: 0DB68ZX Excision of Stomach, Via Natural or Artificial Opening Endoscopic, Diagnostic (ICD-10-PCS; principal; 2019-03-22)
DX: K26.4 Chronic or unspecified duodenal ulcer with hemorrhage (principal); D68.9 Coagulation defect, unspecified; B02.29 Other postherpetic nervous system involvement; I48.91 Unspecified atrial fibrillation; E83.41 Hypermagnesemia; R00.1 Bradycardia, unspecified; I25.10 Atherosclerotic heart disease of native coronary artery without angina pectoris; M19.90 Unspecified osteoarthritis, unspecified site; E78.5 Hyperlipidemia, unspecified; K29.81 Duodenitis with bleeding; E66.09 Other obesity due to excess calories; I10 Essential (primary) hypertension; K21.9 Gastro-esophageal reflux disease without esophagitis; K44.9 Diaphragmatic hernia without obstruction or gangrene; K29.41 Chronic atrophic gastritis with bleeding; Z79.01 Long term (current) use of anticoagulants; Z90.49 Acquired absence of other specified parts of digestive tract; Z95.1 Presence of aortocoronary bypass graft; Z90.710 Acquired absence of both cervix and uterus; Z80.42 Family history of malignant neoplasm of prostate; Z83.3 Family history of diabetes mellitus; Z84.89 Family history of other specified conditions; Z88.8 Allergy status to other drugs, medicaments and biological substances; Z79.82 Long term (current) use of aspirin; Z79.899 Other long term (current) drug therapy; Z68.29 Body mass index [BMI] 29.0-29.9, adult

== ENCOUNTER → 2019-04-02 | Outpatient (CLI) | payer MEDICARE, OTHER ==
[~2019-04-02] MED LIST changes: +LIPITOR40 MG PO; +PANTOPRAZOLE SO40 MG PO
[2019-04-02 12:07] LABS: BILIRUBIN NEGATIVE (NEGATIVE); BLOOD NEGATIVE (NEGATIVE); CLARITY CLEAR (CLEAR); COLOR YELLOW (YELLOW); GLUCOSE NEGATIVE (NEGATIVE); KETONE NEGATIVE (NEGATIVE); LEUKO ESTERASE NEGATIVE (NEGATIVE); NITRITE NEGATIVE (NEGATIVE); SPECIFIC GRAVITY <= 1.005 (1.005-1.030); UROBILINOGEN 0.2 E.U./dl (0.2-1.0)
[2019-04-02 12:18] LABS: RBC 0-2 rbc/hpf (0-2); WBC 0-2 wbc/hpf (0-5)
== END | disposition home or self-care (01) ==
LOC: LAB 11:24
PROVIDERS: Family Medicine
DX: N30.01 Acute cystitis with hematuria (principal)

== ENCOUNTER 2019-09-30 17:35 | Emergency (ER) | payer MEDICARE, OTHER ==
[~2019-09-30] VITALS: Ht 154.9 cm; Wt 74.8 kg
[2019-09-30 17:41] VITALS: BP 204/70
[2019-09-30] MEDS ORDERED: ULTRAM50 MG PO (19:48)
== END 2019-09-30 20:07 | disposition home or self-care (01) ==
LOC: ED 17:35
DX: M23.91 Unspecified internal derangement of right knee (principal); I10 Essential (primary) hypertension; I25.10 Atherosclerotic heart disease of native coronary artery without angina pectoris; E78.00 Pure hypercholesterolemia, unspecified; M06.9 Rheumatoid arthritis, unspecified; Z88.8 Allergy status to other drugs, medicaments and biological substances; Z79.899 Other long term (current) drug therapy; Z79.82 Long term (current) use of aspirin; Z98.61 Coronary angioplasty status; Z90.49 Acquired absence of other specified parts of digestive tract; Z90.710 Acquired absence of both cervix and uterus; W19.XXXA Unspecified fall, initial encounter; Y93.89 Activity, other specified; Y92.098 Other place in other non-institutional residence as the place of occurrence of the external cause; Y99.8 Other external cause status

== ENCOUNTER → 2019-10-24 | Outpatient (CLI) | payer MEDICARE, OTHER ==
[~2019-10-24] MED LIST changes: +ULTRAM50 MG PO
== END ==
LOC: RAD 11:00
DX: M21.161 Varus deformity, not elsewhere classified, right knee (principal); M17.11 Unilateral primary osteoarthritis, right knee; M25.461 Effusion, right knee

== ENCOUNTER → 2020-01-02 | Outpatient (CLI) | payer MEDICARE, OTHER | LOC: RAD 12:46 | DX: M47.815 Spondylosis without myelopathy or radiculopathy, thoracolumbar region (principal); M43.06 Spondylolysis, lumbar region; M41.86 Other forms of scoliosis, lumbar region; M48.07 Spinal stenosis, lumbosacral region; R10.2 Pelvic and perineal pain ==

== ENCOUNTER 2020-02-29 01:48 | Emergency (ER) | payer MEDICARE, OTHER ==
[~2020-02-29] VITALS: Ht 149.8 cm; Wt 77.1 kg
[2020-02-29 02:56] LABS: BASO % 0.4 % (0.0-1.0); EOS # 0.1 10*3/uL (0.0-0.4); EOS % 1.5 % (1.0-4.0); HEMATOCRIT 41.3 % (37.0-47.0); LYMPH # 2.2 10*3/uL (1.3-4.4); LYMPH % 29.2 % (27.0-41.0); MEAN CELL VOLUME 93.7 fl (81.0-99.0); MEAN CORPUSCULAR HGB 29.5 pg (27.0-31.0); MEAN CORPUSCULAR HGB CONC 31.5 g/dl (33.0-37.0); MEAN PLATELET VOLUME 9.9 fl (9.6-12.3); MONO # 1.1 10*3/uL (0.1-1.0); MONO % 15.4 % (3.0-9.0); NEUT # 3.8 10*3/uL (2.3-7.9); NEUT % 51.5 % (47.0-73.0); PLATELET COUNT AUTOMATED 287 10*3/uL (130-400); RED BLOOD COUNT 4.41 10*6/uL (4.10-5.10); RED CELL DISTRI WIDTH 15.4 % (0-14.5); WHITE BLOOD COUNT 7.4 10*3/uL (4.8-10.8)
[2020-02-29 03:12] LABS: ALBUMIN 3.4 gm/dl (3.1-4.5); ALKALINE PHOSPHATASE 89 U/L (45-117); BUN 29 mg/dl (7-24); CHLORIDE 106 mmol/L (98-107); CREATININE 0.65 mg/dL (0.55-1.02); POTASSIUM 4.5 mmol/L (3.5-5.1); SGOT/AST 14 IU/L (3-35); SGPT/ALT 28 U/L (12-78); SODIUM 140 mmol/L (136-145); TOTAL PROTEIN 6.8 gm/dL (6.4-8.2)
[2020-02-29 04:38] VITALS: BP 158/74
== END 2020-02-29 05:08 | disposition home or self-care (01) ==
LOC: ED 01:48
PROVIDERS: Emergency Medicine Emergency Medical Services
DX: J02.8 Acute pharyngitis due to other specified organisms (principal); K59.01 Slow transit constipation; Z88.8 Allergy status to other drugs, medicaments and biological substances; Z79.899 Other long term (current) drug therapy; Z79.82 Long term (current) use of aspirin

== ENCOUNTER → 2020-05-05 | Outpatient (CLI) | payer MEDICARE, OTHER ==
[2020-05-05 13:35] LABS: BILIRUBIN Negative (Negative); BLOOD Negative (Negative); CLARITY Cloudy (Clear); COLOR Dark Yellow (Yellow); GLUCOSE Negative (Negative); KETONE Negative (Negative); LEUKO ESTERASE Negative (Negative); NITRITE Negative (Negative); SPECIFIC GRAVITY 1.015 (1.001-1.030); UROBILINOGEN 0.2 E.U./dl (0.0-1.0)
[2020-05-05 13:57] LABS: BACTERIA TRACE; MUCOUS TRACE
== END | disposition home or self-care (01) ==
LOC: LAB 13:16
PROVIDERS: ATTEND Family Medicine
DX: N30.00 Acute cystitis without hematuria (principal)

== ENCOUNTER 2020-05-06 18:03 | Emergency (ER) | payer MEDICARE, OTHER ==
[~2020-05-06] VITALS: Ht 149.8 cm; Wt 77.1 kg
[2020-05-06 18:19] VITALS: BP 129/58
== END 2020-05-06 23:28 | disposition home or self-care (01) ==
LOC: ED 18:03
DX: S52.122A Displaced fracture of head of left radius, initial encounter for closed fracture (principal); S70.11XA Contusion of right thigh, initial encounter; S09.90XA Unspecified injury of head, initial encounter; I10 Essential (primary) hypertension; I25.10 Atherosclerotic heart disease of native coronary artery without angina pectoris; M19.90 Unspecified osteoarthritis, unspecified site; E78.00 Pure hypercholesterolemia, unspecified; Z88.8 Allergy status to other drugs, medicaments and biological substances; Z79.899 Other long term (current) drug therapy; Z79.82 Long term (current) use of aspirin; Z90.49 Acquired absence of other specified parts of digestive tract; W19.XXXA Unspecified fall, initial encounter; Y93.89 Activity, other specified; Y92.89 Other specified places as the place of occurrence of the external cause; Y99.8 Other external cause status

== ENCOUNTER → 2020-05-13 | Outpatient (CLI) | payer MEDICARE, OTHER | END | disposition home or self-care (01) | LOC: ORTHO 00:40 | PROVIDERS: ATTEND Orthopaedic Surgery | DX: S52.122A Displaced fracture of head of left radius, initial encounter for closed fracture (principal); X58.XXXA Exposure to other specified factors, initial encounter; Y93.89 Activity, other specified; Y92.89 Other specified places as the place of occurrence of the external cause; Y99.8 Other external cause status ==

== ENCOUNTER → 2020-05-27 | Outpatient (CLI) | payer MEDICARE, OTHER | END | disposition home or self-care (01) | LOC: ORTHO 00:23 | PROVIDERS: ATTEND Orthopaedic Surgery | DX: S52.132D Displaced fracture of neck of left radius, subsequent encounter for closed fracture with routine healing (principal); X58.XXXD Exposure to other specified factors, subsequent encounter ==

== ENCOUNTER 2020-08-11 17:12 | Observation (INO) | payer MEDICARE, OTHER ==
[~2020-08-11] VITALS: Ht 157.4 cm; Wt 73.3 kg
[2020-08-11 17:22] VITALS: BP 180/70
[2020-08-11 17:38] LABS: BASO # 0.1 10*3/uL (0.0-0.1); BASO % 1.1 % (0.0-1.0); EOS # 0.1 10*3/uL (0.0-0.4); EOS % 2.1 % (1.0-4.0); HEMATOCRIT 39.5 % (37.0-47.0); LYMPH # 1.4 10*3/uL (1.3-4.4); LYMPH % 25.4 % (27.0-41.0); MEAN CELL VOLUME 91.6 fl (81.0-99.0); MEAN CORPUSCULAR HGB 29.9 pg (27.0-31.0); MEAN CORPUSCULAR HGB CONC 32.7 g/dl (33.0-37.0); MEAN PLATELET VOLUME 10.1 fl (9.6-12.3); MONO # 0.8 10*3/uL (0.1-1.0); MONO % 13.8 % (3.0-9.0); NEUT # 3.2 10*3/uL (2.3-7.9); NEUT % 57.4 % (47.0-73.0); PLATELET COUNT AUTOMATED 274 10*3/uL (130-400); RED BLOOD COUNT 4.31 10*6/uL (4.10-5.10); RED CELL DISTRI WIDTH 13.8 % (0-14.5); WHITE BLOOD COUNT 5.6 10*3/uL (4.8-10.8)
[2020-08-11 17:49] LABS: ACT PARTIAL THROMBO TIME 25.9 SECONDS (20.0-32.1); INTERNATIONAL NORM RATIO 1.1 (2.0-3.5)
[2020-08-11 17:54] LABS: ALBUMIN 3.5 gm/dl (3.1-4.5); ALKALINE PHOSPHATASE 104 U/L (45-117); BUN 18 mg/dl (7-24); CHLORIDE 111 mmol/L (98-107); CREATININE 0.67 mg/dL (0.55-1.02); LIPASE 111 U/L (73-393); POTASSIUM 3.9 mmol/L (3.5-5.1); SGOT/AST 23 IU/L (3-35); SGPT/ALT 31 U/L (12-78); SODIUM 142 mmol/L (136-145); TOTAL PROTEIN 6.8 gm/dL (6.4-8.2)
[2020-08-11 17:59] LABS: TROPONIN I < 0.015 ng/ml (<0.045)
[2020-08-11 18:37] VITALS: BP 136/69
[2020-08-11 19:06] LABS: BILIRUBIN Negative (Negative); BLOOD Negative (Negative); CLARITY Clear (Clear); COLOR Yellow (Yellow); GLUCOSE Negative (Negative); KETONE Negative (Negative); LEUKO ESTERASE Negative (Negative); NITRITE Negative (Negative); PH 7.5 (4.5-8.0); UROBILINOGEN 0.2 E.U./dl (0.0-1.0)
[2020-08-11 19:16] LABS: BACTERIA TRACE
[2020-08-11 19:46] VITALS: BP 161/76
[2020-08-11] MEDS ORDERED: PRESERVISION A1 EACH PO (20:50)
[2020-08-11] MEDS ORDERED: PEPCID20 MG PO (20:51)
[2020-08-11 21:08] VITALS: BP 153/60
[2020-08-11 23:44] VITALS: BP 151/71
[2020-08-12] VITALS: BP 137/87
[2020-08-12] MEDS ORDERED: ESTRADIOL42.5 GM V (00:21)
[2020-08-12] MEDS ORDERED: MYRBETRIQ25 M1 PO (00:23)
[2020-08-12 06:37] LABS: BASO # 0.1 10*3/uL (0.0-0.1); BASO % 1.7 % (0.0-1.0); EOS # 0.3 10*3/uL (0.0-0.4); EOS % 5.6 % (1.0-4.0); HEMATOCRIT 39.8 % (37.0-47.0); LYMPH # 1.3 10*3/uL (1.3-4.4); LYMPH % 27.6 % (27.0-41.0); MEAN CELL VOLUME 93.2 fl (81.0-99.0); MEAN CORPUSCULAR HGB 29.5 pg (27.0-31.0); MEAN CORPUSCULAR HGB CONC 31.7 g/dl (33.0-37.0); MEAN PLATELET VOLUME 10.2 fl (9.6-12.3); MONO # 0.7 10*3/uL (0.1-1.0); MONO % 14.8 % (3.0-9.0); NEUT # 2.4 10*3/uL (2.3-7.9); NEUT % 50.1 % (47.0-73.0); PLATELET COUNT AUTOMATED 269 10*3/uL (130-400); RED BLOOD COUNT 4.27 10*6/uL (4.10-5.10); WHITE BLOOD COUNT 4.8 10*3/uL (4.8-10.8)
[2020-08-12 07:03] LABS: ACT PARTIAL THROMBO TIME 24.9 SECONDS (20.0-32.1); ALBUMIN 3.3 gm/dl (3.1-4.5); ALKALINE PHOSPHATASE 95 U/L (45-117); BUN 14 mg/dl (7-24); CHLORIDE 109 mmol/L (98-107); CREATININE 0.58 mg/dL (0.55-1.02); POTASSIUM 3.7 mmol/L (3.5-5.1); SGOT/AST 19 IU/L (3-35); SGPT/ALT 28 U/L (12-78); SODIUM 142 mmol/L (136-145); TOTAL PROTEIN 6.6 gm/dL (6.4-8.2)
[2020-08-12 08:00] VITALS: BP 152/75
[2020-08-12 08:08] LABS: VITAMIN D, 25-HYDROXY 59.9 ng/mL (30-100)
[2020-08-12 12:00] VITALS: BP 154/57
[2020-08-12 16:00] VITALS: BP 162/58
[2020-08-12 20:00] VITALS: BP 154/59
[2020-08-12 23:41] VITALS: BP 150/61
[2020-08-13 04:00] VITALS: BP 150/61
[2020-08-13 06:42] LABS: BASO # 0.1 10*3/uL (0.0-0.1); BASO % 1.7 % (0.0-1.0); EOS # 0.4 10*3/uL (0.0-0.4); EOS % 7.4 % (1.0-4.0); HEMATOCRIT 40.6 % (37.0-47.0); LYMPH # 1.1 10*3/uL (1.3-4.4); MEAN CELL VOLUME 93.3 fl (81.0-99.0); MEAN CORPUSCULAR HGB 29.7 pg (27.0-31.0); MEAN CORPUSCULAR HGB CONC 31.8 g/dl (33.0-37.0); MEAN PLATELET VOLUME 10.4 fl (9.6-12.3); MONO # 0.9 10*3/uL (0.1-1.0); MONO % 14.6 % (3.0-9.0); NEUT # 3.3 10*3/uL (2.3-7.9); NEUT % 57.1 % (47.0-73.0); PLATELET COUNT AUTOMATED 283 10*3/uL (130-400); RED BLOOD COUNT 4.35 10*6/uL (4.10-5.10); RED CELL DISTRI WIDTH 13.7 % (0-14.5); WHITE BLOOD COUNT 5.8 10*3/uL (4.8-10.8)
[2020-08-13 07:01] LABS: BUN 16 mg/dl (7-24); CHLORIDE 113 mmol/L (98-107); CREATININE 0.64 mg/dL (0.55-1.02); POTASSIUM 4.2 mmol/L (3.5-5.1); SODIUM 143 mmol/L (136-145)
[2020-08-13 08:00] VITALS: BP 159/70
[2020-08-13 11:27] VITALS: BP 180/74
[2020-08-13 12:00] VITALS: BP 146/74
[2020-08-13 13:08] VITALS: BP 150/59
[2020-08-13] MEDS ORDERED: MECLIZINE HCL25 M2 PO (14:24)
== END 2020-08-13 16:36 | disposition home or self-care (01) ==
LOC: ED 17:12 → EDHOLD 18:55 → 5E 18:55 → EDHOLD 19:59 → 5E 23:36
PROVIDERS: Emergency Medicine; Hospitalist; Internal Medicine; ADMIT Family Medicine; ATTEND Family Medicine
DX: R42 Dizziness and giddiness (principal); I25.10 Atherosclerotic heart disease of native coronary artery without angina pectoris; K21.9 Gastro-esophageal reflux disease without esophagitis; E78.5 Hyperlipidemia, unspecified; M19.90 Unspecified osteoarthritis, unspecified site; N32.81 Overactive bladder; R53.1 Weakness; R11.0 Nausea; I10 Essential (primary) hypertension; I48.91 Unspecified atrial fibrillation; H35.30 Unspecified macular degeneration; E66.9 Obesity, unspecified; I95.1 Orthostatic hypotension; Z90.49 Acquired absence of other specified parts of digestive tract; Z98.890 Other specified postprocedural states; Z95.1 Presence of aortocoronary bypass graft

== ENCOUNTER → 2021-03-18 | Outpatient (CLI) | payer MEDICARE, OTHER ==
[~2021-03-18] MED LIST changes: +ESTRADIOL42.5 GM V; +MECLIZINE HCL25 M2 PO; +MYRBETRIQ25 M1 PO; +PEPCID20 MG PO
[2021-03-18 14:45] LABS: BASO # 0.1 10*3/uL (0.0-0.1); BASO % 1.1 % (0.0-1.0); EOS # 0.3 10*3/uL (0.0-0.4); EOS % 4.4 % (1.0-4.0); HEMATOCRIT 42.5 % (37.0-47.0); LYMPH # 1.4 10*3/uL (1.3-4.4); LYMPH % 23.9 % (27.0-41.0); MEAN CELL VOLUME 93.6 fl (81.0-99.0); MEAN CORPUSCULAR HGB 29.5 pg (27.0-31.0); MEAN CORPUSCULAR HGB CONC 31.5 g/dl (33.0-37.0); MEAN PLATELET VOLUME 10.2 fl (9.6-12.3); MONO # 0.8 10*3/uL (0.1-1.0); MONO % 14.6 % (3.0-9.0); NEUT # 3.2 10*3/uL (2.3-7.9); NEUT % 55.8 % (47.0-73.0); PLATELET COUNT AUTOMATED 262 10*3/uL (130-400); RED BLOOD COUNT 4.54 10*6/uL (4.10-5.10); RED CELL DISTRI WIDTH 15.3 % (0-14.5); WHITE BLOOD COUNT 5.7 10*3/uL (4.8-10.8)
[2021-03-18 15:02] LABS: ALBUMIN 3.7 gm/dl (3.1-4.5); ALKALINE PHOSPHATASE 122 U/L (45-117); BUN 22 mg/dl (7-24); CHLORIDE 108 mmol/L (98-107); CHOLESTEROL 109 mg/dL (<200); CREATININE 0.75 mg/dL (0.55-1.02); LDL CHOLESTEROL 27 mg/dL (9-159); POTASSIUM 4.7 mmol/L (3.5-5.1); SGOT/AST 21 IU/L (3-35); SGPT/ALT 35 U/L (12-78); SODIUM 141 mmol/L (136-145); TOTAL PROTEIN 7.2 gm/dL (6.4-8.2); TRIGLYCERIDES 165 mg/dl (<150)
== END | disposition home or self-care (01) ==
LOC: LAB 14:15
PROVIDERS: ATTEND Family Medicine
DX: R53.83 Other fatigue (principal); I48.91 Unspecified atrial fibrillation; Z79.899 Other long term (current) drug therapy

== ENCOUNTER 2022-02-22 15:55 | Emergency (ER) | payer MEDICARE, OTHER ==
[~2022-02-22] VITALS: Ht 154.9 cm; Wt 71.7 kg
[2022-02-22 17:20] VITALS: BP 145/54
== END 2022-02-22 19:39 | disposition home or self-care (01) ==
LOC: ED 15:55
DX: M25.561 Pain in right knee (principal); Z90.49 Acquired absence of other specified parts of digestive tract; Z98.890 Other specified postprocedural states; Z79.899 Other long term (current) drug therapy; Z79.82 Long term (current) use of aspirin; Z88.1 Allergy status to other antibiotic agents

== ENCOUNTER 2022-03-15 00:50 | Emergency (ER) | payer MEDICARE, OTHER ==
[~2022-03-15] VITALS: Ht 167.6 cm; Wt 90.7 kg
[2022-03-15 08:06] VITALS: BP 144/63
== END 2022-03-15 08:25 | disposition home or self-care (01) ==
LOC: ED 00:50
DX: M79.89 Other specified soft tissue disorders (principal); M79.661 Pain in right lower leg; M79.662 Pain in left lower leg; I25.10 Atherosclerotic heart disease of native coronary artery without angina pectoris; I10 Essential (primary) hypertension; K21.9 Gastro-esophageal reflux disease without esophagitis; M19.90 Unspecified osteoarthritis, unspecified site; I48.91 Unspecified atrial fibrillation; E78.5 Hyperlipidemia, unspecified; E66.9 Obesity, unspecified; Z88.8 Allergy status to other drugs, medicaments and biological substances; Z79.899 Other long term (current) drug therapy; Z79.82 Long term (current) use of aspirin; Z90.49 Acquired absence of other specified parts of digestive tract; Z90.710 Acquired absence of both cervix and uterus; Z90.89 Acquired absence of other organs

== ENCOUNTER → 2022-03-23 | Outpatient (CLI) | payer MEDICARE, OTHER ==
[2022-03-23 11:23] LABS: BASO # 0.1 10*3/uL (0.0-0.1); BASO % 1.4 % (0.0-1.0); EOS # 0.2 10*3/uL (0.0-0.4); EOS % 4.9 % (1.0-4.0); HEMATOCRIT 38.4 % (37.0-47.0); LYMPH # 0.8 10*3/uL (1.3-4.4); LYMPH % 15.4 % (27.0-41.0); MEAN CELL VOLUME 96.2 fl (81.0-99.0); MEAN CORPUSCULAR HGB 30.3 pg (27.0-31.0); MEAN CORPUSCULAR HGB CONC 31.5 g/dl (33.0-37.0); MEAN PLATELET VOLUME 10.4 fl (9.6-12.3); MONO # 0.6 10*3/uL (0.1-1.0); MONO % 12.7 % (3.0-9.0); NEUT # 3.2 10*3/uL (2.3-7.9); NEUT % 65.2 % (47.0-73.0); PLATELET COUNT AUTOMATED 262 10*3/uL (130-400); RED BLOOD COUNT 3.99 10*6/uL (4.10-5.10); RED CELL DISTRI WIDTH 14.6 % (0-14.5); WHITE BLOOD COUNT 4.9 10*3/uL (4.8-10.8)
[2022-03-23 11:36] LABS: ALKALINE PHOSPHATASE 105 U/L (45-117); BUN 19 mg/dl (7-24); CHLORIDE 111 mmol/L (98-107); CHOLESTEROL 99 mg/dL (<200); CREATININE 0.57 mg/dL (0.55-1.02); LDL CHOLESTEROL 34 mg/dL (9-159); SGOT/AST 21 IU/L (3-35); SGPT/ALT 33 U/L (12-78); SODIUM 143 mmol/L (136-145); TOTAL PROTEIN 6.6 gm/dL (6.4-8.2); TRIGLYCERIDES 109 mg/dl (<150)
[2022-03-23 11:42] LABS: THYROID STIM HORMONE (HS) 0.858 uIU/ml (0.358-4.75)
== END | disposition home or self-care (01) ==
LOC: LAB 10:26
PROVIDERS: ATTEND Family Medicine
DX: I10 Essential (primary) hypertension (principal); E78.2 Mixed hyperlipidemia; I48.91 Unspecified atrial fibrillation

== ENCOUNTER → 2022-07-29 | Outpatient (CLI) | payer MEDICARE, OTHER | END | disposition home or self-care (01) | LOC: COVID19 09:18 | PROVIDERS: ATTEND Internal Medicine | DX: Z20.822 Contact with and (suspected) exposure to COVID-19 (principal) ==

== ENCOUNTER 2022-08-29 21:49 | Emergency (ER) | payer MEDICARE, OTHER ==
[~2022-08-29] VITALS: Ht 154.9 cm; Wt 71.2 kg
[2022-08-29 22:38] VITALS: BP 153/69
[2022-08-29] MEDS ORDERED: ZITHROMAX250 MG PO (23:55)
[2022-08-29] MEDS ORDERED: CEPHALEXIN500 M1 PO (23:55)
== END 2022-08-30 | disposition left against medical advice (07) ==
LOC: ED 21:49
DX: S60.511A Abrasion of right hand, initial encounter (principal); I10 Essential (primary) hypertension; M19.90 Unspecified osteoarthritis, unspecified site; Z88.8 Allergy status to other drugs, medicaments and biological substances; Z90.49 Acquired absence of other specified parts of digestive tract; Z90.89 Acquired absence of other organs; Z90.710 Acquired absence of both cervix and uterus; Z98.890 Other specified postprocedural states; W55.03XA Scratched by cat, initial encounter; Y93.89 Activity, other specified; Y92.009 Unspecified place in unspecified non-institutional (private) residence as the place of occurrence of the external cause; Y99.8 Other external cause status

== ENCOUNTER → 2022-09-21 | Outpatient (CLI) | payer MEDICARE, OTHER ==
[~2022-09-21] MED LIST changes: +CEPHALEXIN500 M1 PO
== END ==
LOC: LAB 00:12 → CT 00:12
PROVIDERS: ATTEND Student in an Organized Health Care Education/Training Program
DX: Z01.818 Encounter for other preprocedural examination (principal); M48.062 Spinal stenosis, lumbar region with neurogenic claudication; M47.816 Spondylosis without myelopathy or radiculopathy, lumbar region; M48.061 Spinal stenosis, lumbar region without neurogenic claudication; M43.16 Spondylolisthesis, lumbar region; M48.07 Spinal stenosis, lumbosacral region; M41.86 Other forms of scoliosis, lumbar region; M51.26 Other intervertebral disc displacement, lumbar region; M25.78 Osteophyte, vertebrae

== ENCOUNTER 2022-11-23 19:54 | Emergency (ER) | payer MEDICARE, OTHER ==
[~2022-11-23] VITALS: Ht 154.9 cm; Wt 78.7 kg
[2022-11-23] MEDS ORDERED: LISINOPRIL10 M1 PO (20:05)
[2022-11-23] MEDS ORDERED: PANTOPRAZOLE SO40 MG PO (20:05)
[2022-11-23] MEDS ORDERED: GEMTESA75 MG PO (20:07)
[2022-11-23 20:48] LABS: BASO # 0.1 10*3/uL (0.0-0.1); BASO % 1.3 % (0.0-1.0); EOS # 0.1 10*3/uL (0.0-0.4); EOS % 2.2 % (1.0-4.0); HEMATOCRIT 40.4 % (37.0-47.0); LYMPH # 1.1 10*3/uL (1.3-4.4); LYMPH % 17.3 % (27.0-41.0); MEAN CELL VOLUME 94.8 fl (81.0-99.0); MEAN CORPUSCULAR HGB 30.3 pg (27.0-31.0); MEAN CORPUSCULAR HGB CONC 31.9 g/dl (33.0-37.0); MEAN PLATELET VOLUME 10.1 fl (9.6-12.3); MONO # 0.8 10*3/uL (0.1-1.0); MONO % 12.1 % (3.0-9.0); NEUT # 4.2 10*3/uL (2.3-7.9); NEUT % 66.9 % (47.0-73.0); PLATELET COUNT AUTOMATED 264 10*3/uL (130-400); RED BLOOD COUNT 4.26 10*6/uL (4.10-5.10); RED CELL DISTRI WIDTH 14.2 % (0-14.5); WHITE BLOOD COUNT 6.3 10*3/uL (4.8-10.8)
[2022-11-23 21:02] LABS: ACT PARTIAL THROMBO TIME 25.6 SECONDS (20.0-32.1); INTERNATIONAL NORM RATIO 1.1 (2.0-3.5)
[2022-11-23 21:12] LABS: ALKALINE PHOSPHATASE 108 U/L (46-116); BUN 22 mg/dl (9-23); CHLORIDE 107 mmol/L (98-107); LIPASE 37 U/L (12-53); POTASSIUM 4.2 mmol/L (3.4-5.1); SGPT/ALT 23 U/L (10-49); THYROID STIM HORMONE (HS) 0.899 uIU/ml (0.550-4.780); TOTAL PROTEIN 6.6 gm/dL (6.0-8.0)
[2022-11-23 21:48] LABS: BILIRUBIN Negative (Negative); BLOOD Negative (Negative); CLARITY Clear (Clear); COLOR Yellow (Yellow); GLUCOSE Negative (Negative); KETONE Negative (Negative); LEUKO ESTERASE Negative (Negative); NITRITE Negative (Negative); UROBILINOGEN 0.2 E.U./dl (0.0-1.0)
[2022-11-23 21:54] LABS: RBC 0-2 rbc/hpf (0-2); WBC 0-2 wbc/hpf (0-5)
[2022-11-24 00:49] VITALS: BP 121/81
== END 2022-11-24 01:18 | disposition home or self-care (01) ==
LOC: ED 19:54
PROVIDERS: Student in an Organized Health Care Education/Training Program
DX: I48.91 Unspecified atrial fibrillation (principal); R07.89 Other chest pain; E78.00 Pure hypercholesterolemia, unspecified; I25.10 Atherosclerotic heart disease of native coronary artery without angina pectoris; I10 Essential (primary) hypertension; K21.9 Gastro-esophageal reflux disease without esophagitis; E78.5 Hyperlipidemia, unspecified; M19.90 Unspecified osteoarthritis, unspecified site; Z90.49 Acquired absence of other specified parts of digestive tract; Z88.8 Allergy status to other drugs, medicaments and biological substances; Z90.710 Acquired absence of both cervix and uterus; Z90.89 Acquired absence of other organs; Z98.890 Other specified postprocedural states

== ENCOUNTER → 2023-02-15 | Outpatient (CLI) | payer MEDICARE, OTHER ==
[~2023-02-15] MED LIST changes: +GEMTESA75 MG PO; +LISINOPRIL10 M1 PO; +METOPROLOL SUCC50 M1 PO; +NORVASC5 MG PO
== END | disposition home or self-care (01) ==
LOC: CARD 00:58
PROVIDERS: ATTEND Internal Medicine Cardiovascular Disease
DX: R06.02 Shortness of breath (principal)

== ENCOUNTER 2023-09-28 20:32 | Emergency (ER) | payer MEDICARE, OTHER ==
[~2023-09-28] VITALS: Ht 157.4 cm; Wt 77.1 kg
[2023-09-28 20:32] VITALS: BP 134/60
[~2023-09-28 20:32] MED LIST changes: +LOW DOSE ASPIRI81 M1 PO; -METOPROLOL SUCC50 M1 PO; +PRESERVISION A1 EAC4 PO; +TYLENOL325 M2 PO; +VITAMIN B COMP1 EAC1 PO
[2023-09-28] MEDS ORDERED: DULOXETINE HCL20 MG PO (20:46)
[2023-09-28] MEDS ORDERED: ACETAMINOPHEN 325 MG TAB PO ONE (20:50)
[2023-09-28] MEDS ORDERED: Ketorolac Tromethamine 60 MG/2 ML VIAL IM ONE (23:05)
== END 2023-09-28 23:13 | disposition home or self-care (01) ==
LOC: ED 20:32
DX: M25.561 Pain in right knee (principal); M79.671 Pain in right foot; M79.661 Pain in right lower leg; I48.91 Unspecified atrial fibrillation; Z88.8 Allergy status to other drugs, medicaments and biological substances; Z79.899 Other long term (current) drug therapy; Z79.82 Long term (current) use of aspirin; Z90.49 Acquired absence of other specified parts of digestive tract; Z98.890 Other specified postprocedural states; Z90.711 Acquired absence of uterus with remaining cervical stump; Z90.89 Acquired absence of other organs; Z98.61 Coronary angioplasty status; W17.89XA Other fall from one level to another, initial encounter; Y93.89 Activity, other specified; Y92.89 Other specified places as the place of occurrence of the external cause; Y99.8 Other external cause status

== ENCOUNTER 2023-09-30 03:31 | Emergency (ER) | payer MEDICARE, OTHER ==
[~2023-09-30] VITALS: Ht 157.4 cm; Wt 77.1 kg
[~2023-09-30 03:31] MED LIST changes: +DULOXETINE HCL20 MG PO
[2023-09-30 03:41] VITALS: BP 148/58
[2023-09-30] MEDS ORDERED: Ketorolac Tromethamine 60 MG/2 ML VIAL IM ONE (03:45)
[2023-09-30] MEDS ORDERED: Dexamethasone Sodium Phospha 20 MG/5 ML VIAL IM ONE (03:45)
[2023-09-30] MEDS ORDERED: PREDNISONE50 MG PO (06:09)
== END 2023-09-30 06:11 | disposition home or self-care (01) ==
LOC: ED 03:31
DX: M25.561 Pain in right knee (principal); M79.89 Other specified soft tissue disorders; M19.90 Unspecified osteoarthritis, unspecified site; Z88.8 Allergy status to other drugs, medicaments and biological substances; Z79.899 Other long term (current) drug therapy; Z79.82 Long term (current) use of aspirin; Z90.49 Acquired absence of other specified parts of digestive tract; Z98.890 Other specified postprocedural states; Z98.61 Coronary angioplasty status; Z90.711 Acquired absence of uterus with remaining cervical stump; Z90.89 Acquired absence of other organs; W18.39XA Other fall on same level, initial encounter; Y93.89 Activity, other specified; Y92.89 Other specified places as the place of occurrence of the external cause; Y99.8 Other external cause status

== ENCOUNTER 2023-10-25 01:04 | Emergency (ER) | payer MEDICARE, OTHER ==
[~2023-10-25] VITALS: Ht 157.4 cm; Wt 70.3 kg
[~2023-10-25 01:04] MED LIST changes: +PREDNISONE50 MG PO
[2023-10-25 01:17] VITALS: BP 135/63
[2023-10-25] MEDS ORDERED: predniSONE 20 MG TAB PO ONE (01:40)
== END 2023-10-25 02:16 | disposition home or self-care (01) ==
LOC: ED 01:04
DX: T63.461A Toxic effect of venom of wasps, accidental (unintentional), initial encounter (principal); I10 Essential (primary) hypertension; I25.10 Atherosclerotic heart disease of native coronary artery without angina pectoris; K21.9 Gastro-esophageal reflux disease without esophagitis; E78.00 Pure hypercholesterolemia, unspecified; M19.90 Unspecified osteoarthritis, unspecified site; Z88.8 Allergy status to other drugs, medicaments and biological substances; Z90.49 Acquired absence of other specified parts of digestive tract; Z98.890 Other specified postprocedural states; Z90.89 Acquired absence of other organs; Z90.710 Acquired absence of both cervix and uterus; Y92.89 Other specified places as the place of occurrence of the external cause